=== PATIENT | male | born 1960 | race Caucasian/White ===

== ENCOUNTER → 2018-09-23 10:12 | Outpatient (CLI) | payer OTHER, SELFPAY ==
--- NOTE | 2018-09-23 | DI.RAD.S_ITS ---
PROCEDURE: XR ANKLE LT MIN 3V INDICATIONS: LEFT ANKLE PAIN POST FALL TECHNIQUE: 3 views of the ankle were acquired. COMPARISON: None. FINDINGS: Bones: No fractures or dislocations. Ankle mortise is normally aligned. No suspicious bony lesions. There is a plantar fascia insertion spur, mild to moderate in severity, at the posterior calcaneus. Soft tissues: No tibiotalar joint effusion. Achilles tendon appears normal. IMPRESSION: No trauma found. Plantar fascial insertion spurring, chronic in appearance. No ligamentous laxity is identified. Dictated by: Shahram Sparrow M.D. on 09/23/2018 at 11:08 Approved by: Shahram Sparrow M.D. on 09/23/2018 at 11:09
== END ==
PROVIDERS: Visit Provider Family Medicine
DX: M25.572 Pain in left ankle and joints of left foot (principal); M77.32 Calcaneal spur, left foot
CPT/HCPCS: 73610

== ENCOUNTER → 2020-08-13 14:26 | Outpatient (CLI) | payer OTHER, SELFPAY ==
[2020-08-13 15:21] LABS: COVID19 -Nasal RAPID Negative (Negative)
== END ==
PROVIDERS: Visit Provider Physician Assistant
DX: Z11.59 Encounter for screening for other viral diseases (principal)
CPT/HCPCS: 87635

== ENCOUNTER 2021-09-29 09:30 | Inpatient (IN) | payer OTHER, SELFPAY ==
[2021-09-29] VITALS (13 sets, daily range): BP systolic 106–127; BP diastolic 55–68; PULSE 62–73; RESP 10–31; TEMP 35.7–37.7; O2SAT 92–97; BMI 36.6
--- NOTE | 2021-09-29 09:40 | ED.SOB ---
HPI - SOB/Dyspnea General Chief Complaint: Upper Respiratory Symptoms Stated Complaint: COVID + Time Seen by Provider: 09/29/21 09:44 Source: patient Mode of arrival: EMS Limitations: no limitations History of Present Illness HPI Narrative: This is a 61-year-old male with a known history of hypertension, dyslipidemia and prediabetes. Patient does not have any history of COPD or asthma. States he started having symptoms about 10-12 days ago. He thought it was a sinus infection was started on antibiotics. He started feeling more short of breath and generally worse about or 3 days ago. Did a home test was positive for COVID. His spouse is also positive. Patient is unvaccinated. He denies any fevers at this time. He has had a cough which has been nonproductive. He denies chest pain or pressure but gets very short of breath. Patient notes that he has had felt lightheaded the last day particularly today. He has not had any nausea or vomiting. No other diarrhea constipation. No swelling of his extremities. Patient denies any urinary symptoms. Patient states that he checked a home pulse ox yesterday and had some very low numbers, he repeated it today and was as low as the 70s sinus pulse ox for a longer period of time and finally called EMS for transport. Patient did require oxygen for them to get him above 85%. Denies tobacco, states he was drinking 2-3 shots daily until 12 days ago. Denies any to marijuana or illicit drugs. Dr. Dolan is his primary care. Related Data Home Medications Medication Instructions Recorded Confirmed atorvastatin 40 mg tablet 40 mg PO QA 09/29/21 09/29/21 hydrochlorothiazide 12.5 mg capsule 12.5 mg PO QA 09/29/21 09/29/21 losartan 100 mg tablet 100 mg PO QAM 09/29/21 09/29/21 metformin 500 mg tablet 500 mg PO [facility] 09/29/21 09/29/21 Allergies Allergy/AdvReac Type Severity Reaction Status Date / Time No Known Drug Allergies Allergy Unverified 08/13/20 14:23 Review of Systems Review of Systems ROS Unobtainable: All systems reviewed & are unremarkable except as noted in HPI and below Patient History Medical History Exposure to COVID-19 virus Social History household members: spouse Smoking Status: Never smoker Smoking Status: Never smoker Exam Narrative Exam Narrative: GENERAL: Alert and oriented x three, obese male in mild to moderate distress. Patient arrived on 10 L non-rebreather with EMS but was able to be weaned down to 4 L. HEENT: Head normocephalic, atraumatic, EOMI, pupils reactive, face symmetric, moist mucous membranes NECK: Supple, full range of motion CARDIOVASCULAR: Regular rate and rhythm without murmurs, rubs or gallops. RESPIRATORY: Breath sounds equal bilaterally slightly decreased in the bases,no wheezes rales or rhonchi. No tachypnea or accessory muscle use. ABDOMEN: Soft, nontender. Normoactive bowel sounds all 4 quadrants. No guarding or rebound, rigidity, no mass : No CVA tenderness EXTREMITIES: Normal range of motion, no clubbing or edema. Neurovascularly intact NEUROLOGICAL: Cranial nerves II through XII grossly intact. Moving all extremities SKIN: Warm, dry, no petechiae, no rashes or lesions. Initial Vital Signs Initial Vital Signs: Vital Signs Pulse Rate 70 09/29/21 09:37 Pulse Oximetry 93 09/29/21 09:37 Course Orders Ordered: Acetaminophen (Acetaminophen 325 Mg Tablet) 650 mg PO Q6HR PRN PRN Reason: Fever/Mild Pain (1-3) Hydrocodone Bitart/Acetaminophen (Hydrocodone/Acet 5/325 Tablet) 1 tab PO Q4HR PRN PRN Reason: Pain, Moderate (4-6) Dexamethasone (Dexamethasone 10 Mg/Ml Vial) 6 mg IV DAILY [facility] Enoxaparin Sodium (Enoxaparin 40 Mg/0.4 Ml Syringe) 40 mg SUBCUT DAILY [facility] Sodium Chloride (Normal Saline 0.9%) 1,000 mls @ 125 mls/hr IV CONT [facility] Last Infusion: 09/29/21 12:34 Dose: 0 mls/hr Documented by: Admin: 09/29/21 11:38 Dose: 125 mls/hr Documented by: JD Remdesivir 100 mg/ Sodium (Chloride) 250 mls @ 250 mls/hr IV DAILY [facility] Stop: 10/03/21 09:59 Ibuprofen (Ibuprofen 600 Mg Tablet) 600 mg PO Q6HR PRN PRN Reason: Fever/Mild Pain (1-3) Influenza Virus Vaccine (Influenza Vaccine Qiv 0.5 Ml Syringe) 0.5 ml IM .ONCE ONE Stop: 09/30/21 09:01 Lorazepam (Lorazepam 2 Mg/Ml Inj) 0.5 mg IV Q6HR PRN PRN Reason: Anxiety Magnesium Hydroxide (Magnesium Hydroxide 30 Ml Udc) 30 ml PO DAILY PRN PRN Reason: Constipation Morphine Sulfate (Morphine 2 Mg/Ml Inj) 2 mg IV Q4HR PRN PRN Reason: Pain, Moderate (4-6) Naloxone HCl (Naloxone 0.4 Mg/Ml Vial) 0.2 mg IV Q2MIN PRN PRN Reason: Opiate Reversal Ondansetron HCl (Ondansetron 4 Mg/2 Ml Inj) 4 mg IV Q8HR PRN PRN Reason: Nausea And Vomiting Pantoprazole Sodium (Pantoprazole 40 Mg Vial) 40 mg IV DAILY [facility] Discontinued Medications Dexamethasone (Dexamethasone 10 Mg/Ml Vial) 6 mg IV NOW ONE Stop: 09/29/21 09:46 Last Admin: 09/29/21 09:48 Dose: 6 mg Documented by: ADE Enoxaparin Sodium (Enoxaparin 40 Mg/0.4 Ml Syringe) 40 mg SUBCUT NOW ONE Stop: 09/29/21 11:07 Last Admin: 09/29/21 11:36 Dose: 40 mg Documented by: JD Remdesivir 200 mg/ Sodium (Chloride) 250 mls @ 250 mls/hr IV NOW ONE Stop: 09/29/21 10:44 Last Infusion: 09/29/21 12:34 Dose: 0 mls/hr Documented by: Admin: 09/29/21 11:35 Dose: 250 mls/hr Documented by: JD Reevaluation(s) Reevaluation #1: Patient requiring 4 L nasal cannula. We were able to titrate down from the 10 L that EMS had started him on. He is tolerating this well. Patient was started on dexamethasone and remdesivir. Discussed Dr. Avery is recommendations that he should get a dose of Lovenox. Patient is amenable to all his treatments so far. Discussed his results and findings. All questions answered. Consultations Consultation #1: Dr. Avery, accepts for admission. Asks that we give lovenox 40mg subcutaneous IM. Patient requiring 4L n/c in department. Plan for inpatient admission. Dexamethasone remdesivir were initiated. Vital Signs Vital signs: Vital Signs - 8 hr 09/29/21 09:37 09/29/21 09:40 09/29/21 09:53 Temperature 99.9 F H Pulse Rate 70 71 72 Respiratory Rate 18 Blood Pressure 106/55 L 114/61 Pulse Oximetry 93 95 97 09/29/21 10:00 09/29/21 10:10 09/29/21 10:30 Temperature Pulse Rate 73 70 69 Respiratory Rate 10 L 23 Blood Pressure 121/60 112/63 Pulse Oximetry 93 94 94 09/29/21 11:00 Temperature Pulse Rate 66 Respiratory Rate 20 Blood Pressure 124/61 Pulse Oximetry 96 MDM - SOB/Dyspnea Lab Data Result diagrams: 09/29/21 09:45 09/29/21 09:45 Labs: Lab Results 09/29/21 09/29/21 09/29/21 Range/Units 09:35 09:45 09:45 WBC 4.0 L (4.5-11.0) X10^3/uL RBC 4.60 (4.5-5.9) X10^6/uL Hgb 14.0 (13.5-17.5) g/dL Hct 40.5 L (41-53) % MCV 88.1 (80-100) fL MCH 30.5 (26-34) PG MCHC 34.6 (30-36) % RDW 13.2 (11.6-14.8) % Plt Count 210 (150-400) X10^3/uL Neut % (Auto) 72.6 (50-75) % Lymph % (Auto) 21.4 L (25-40) % [place] % (Auto) 4.6 (3-14) % Eos % (Auto) 0.3 L (2-4) % Baso % (Auto) 1.1 (0-2) % Neut # (Auto) 2900 (1276-2719) /uL Lymph # (Auto) 900 L (0333-3786) /uL [place] # (Auto) 200 (0-900) /uL Eos # (Auto) 0 (0-450) /uL Baso # (Auto) 0 (0-100) /uL D-Dimer 498 H (<230) ng/mL Sodium (137-145) mmol/L Potassium (3.4-5.1) mmol/L Chloride (98-107) mmol/L Carbon Dioxide (22-32) mmol/L BUN (9-20) mg/dL Creatinine (0.66-1.25) mg/dL Estimated GFR (>60) mL/min BUN/Creatinine Ratio (6-22) Glucose (70-100) mg/dL Lactate (0.7-2.1) mmol/L Calcium (8.4-10.2) mg/dL Ferritin (18-464) ng/mL Total Bilirubin (0.2-1.3) mg/dL AST (17-59) IU/L ALT (<50) IU/L Alkaline Phosphatase (38-126) U/L Lactate Dehydrogenase (313-618) U/L Total Creatine Kinase (55-170) U/L CK-MB (CK-2) (<2.37) ng/mL CK-MB (CK-2) Rel Index (1.5-5.0) % Troponin I (0.01-0.034) ng/mL C-Reactive Protein (<1.0) mg/dL NT-Pro-B Natriuret Pep (<125) pg/mL Total Protein (6.3-8.2) g/dL Albumin (3.5-5.0) g/dL Globulin (1.7-4.1) g/dL Albumin/Globulin Ratio (1.0-2.8) Procalcitonin (<0.5) ng/mL SARS-CoV-2 (PCR) Positive H (Negative) 09/29/21 09/29/21 09/29/21 Range/Units 09:45 09:45 09:45 WBC (4.5-11.0) X10^3/uL RBC (4.5-5.9) X10^6/uL Hgb (13.5-17.5) g/dL Hct (41-53) % MCV (80-100) fL MCH (26-34) PG MCHC (30-36) % RDW (11.6-14.8) % Plt Count (150-400) X10^3/uL Neut % (Auto) (50-75) % Lymph % (Auto) (25-40) % [place] % (Auto) (3-14) % Eos % (Auto) (2-4) % Baso % (Auto) (0-2) % Neut # (Auto) (6420-6216) /uL Lymph # (Auto) (9142-8253) /uL [place] # (Auto) (0-900) /uL Eos # (Auto) (0-450) /uL Baso # (Auto) (0-100) /uL D-Dimer (<230) ng/mL Sodium 131 L (137-145) mmol/L Potassium 3.9 (3.4-5.1) mmol/L Chloride 96 L (98-107) mmol/L Carbon Dioxide 27 (22-32) mmol/L BUN 37 H (9-20) mg/dL Creatinine 1.68 H (0.66-1.25) mg/dL Estimated GFR 42.0 L (>60) mL/min BUN/Creatinine Ratio 22.0 (6-22) Glucose 113 H (70-100) mg/dL Lactate 1.1 (0.7-2.1) mmol/L Calcium 8.5 (8.4-10.2) mg/dL Ferritin 2030 H (18-464) ng/mL Total Bilirubin 0.9 (0.2-1.3) mg/dL AST 106 H (17-59) IU/L ALT 59 H (<50) IU/L Alkaline Phosphatase 70 (38-126) U/L Lactate Dehydrogenase 1760 H (313-618) U/L Total Creatine Kinase 915 H (55-170) U/L CK-MB (CK-2) 1.37 (<2.37) ng/mL CK-MB (CK-2) Rel Index 0.1 L (1.5-5.0) % Troponin I < 0.012 (0.01-0.034) ng/mL C-Reactive Protein 5.2 H (<1.0) mg/dL NT-Pro-B Natriuret Pep 84 (<125) pg/mL Total Protein 7.9 (6.3-8.2) g/dL Albumin 4.3 (3.5-5.0) g/dL Globulin 3.6 (1.7-4.1) g/dL Albumin/Globulin Ratio 1.2 (1.0-2.8) Procalcitonin 0.17 (<0.5) ng/mL SARS-CoV-2 (PCR) (Negative) Imaging Data Chest x-ray: Radiologist's Impression: Arturo Zeng??61??M??1960 ? Allergy/Adv: No Known Drug Allergies (More??) Close Chest X-Ray (Signed) Chay Harrison - 09/29/21 Ankle X-Ray (Signed) Shahram Sparrow - 09/23/18 Launch?[address] [address] XRay Report Signed Patient: Arturo Zeng MR#: [id number] : 1960 Acct:[id number] Age/Sex: 61 / M Date of Service: 09/29/21 Loc: ED Accession Number: [id number] ?? Procedure: XR chest 1V Ordering Provider: Lexy Ibanez D.O. PROCEDURE:? XR CHEST 1V ? INDICATIONS:? sob, hypoxia, +covid at home ? TECHNIQUE:? One view of the chest was acquired.? ? COMPARISON:? None. ? FINDINGS:? ? Surgical changes and devices:? None.? ? Lungs and pleura:? There are diffuse predominately ground-glass opacities noted throughout the lungs.? This is most prominent within the central right lung and along the peripheral of the left lung. No pleural effusions or pneumothorax.? ? Mediastinum:? Mediastinal contours appear normal.? Heart size is normal.? ? Bones and chest wall:? No suspicious bony lesions.? Overlying soft tissues appear unremarkable.? ? IMPRESSION:? ? Diffuse ground-glass opacities most consistent with multifocal pneumonia.? Given history, this is most likely due to Covid pneumonia. ? ? Dictated by: Chay Harrison D.O. on 09/29/2021 at 9:07 ? ? Approved by: Chay Harrison D.O. on 09/29/2021 at 9:09?? MDM Narrative Medical decision making narrative: This is a 61-year-old male with multiple comorbidities who test positive for COVID. He is unvaccinated and requiring L oxygen nasal cannula with pneumonia and positive COVID test. Patient's inflammatory markers are concerning. He does have an elevated creatinine today unsure if this is his baseline verses new. Patient was given some gentle hydration after discussion with hospitalist Service. Dexamethasone and remdesivir after discussed with the patient. Lovenox was also initiated his D-dimer is elevated which is not completely unexpected with a COVID infection. This was discussed as well with the hospitalist. Patient was not having increasing oxygen requirements in the department and was admitted inpatient. Discharge Plan Departure Patient Disposition: Admitted As Inpatient Clinical Impression: Acute respiratory failure with hypoxia, Pneumonia due to 2019 novel coronavirus Admit Date/Time: 09/29/21 11:28 Admit Provider: Анна Avery
--- NOTE | 2021-09-29 09:41 | DI.RAD.S_ITS ---
PROCEDURE: XR CHEST 1V INDICATIONS: sob, hypoxia, +covid at home TECHNIQUE: One view of the chest was acquired. COMPARISON: None. FINDINGS: Surgical changes and devices: None. Lungs and pleura: There are diffuse predominately ground-glass opacities noted throughout the lungs. This is most prominent within the central right lung and along the peripheral of the left lung. No pleural effusions or pneumothorax. Mediastinum: Mediastinal contours appear normal. Heart size is normal. Bones and chest wall: No suspicious bony lesions. Overlying soft tissues appear unremarkable. IMPRESSION: Diffuse ground-glass opacities most consistent with multifocal pneumonia. Given history, this is most likely due to Covid pneumonia. Dictated by: Chay Harrison D.O. on 09/29/2021 at 9:07 Approved by: Chay Harrison D.O. on 09/29/2021 at 9:09
[2021-09-29] MEDS: DEXAMETHASONE 10 MG/ML VIAL 6 MG IV (09:48)
[2021-09-29 09:55] LABS: Add Manual Diff / Slide Review NO; Basophils Absolute Auto 0 /uL (0-100); Basophils Percent Auto 1.1 % (0-2); Eosinophils Absolute Auto 0 /uL (0-450); Eosinophils Percent Auto 0.3 % (2-4); Hematocrit 40.5 % (41-53); Lymphocytes Absolute Auto 900 /uL (1100-4500); Lymphocytes Percent Auto 21.4 % (25-40); Mean Corpuscular HGB Conc 34.6 % (30-36); Mean Corpuscular Hemoglobin 30.5 PG (26-34); Mean Corpuscular Volume 88.1 fL (80-100); Monocytes Absolute Auto 200 /uL (0-900); Monocytes Percent Auto 4.6 % (3-14); Neutrophils Absolute Auto 2900 /uL (1500-7000); Neutrophils Percent Auto 72.6 % (50-75); Platelet Count 210 X10^3/uL (150-400); Red Cell Distribution Width 13.2 % (11.6-14.8)
[2021-09-29 10:06] LABS: D Dimer 498 ng/mL (<230)
[2021-09-29 10:08] LABS: Lactate (Lactic Acid) 1.1 mmol/L (0.7-2.1)
[2021-09-29 10:10] LABS: Alanine Aminotransferase 59 IU/L (<50); Albumin 4.3 g/dL (3.5-5.0); Albumin Globulin Ratio 1.2 (1.0-2.8); Alkaline Phosphatase 70 U/L (38-126); Aspartate Aminotransferase 106 IU/L (17-59); Bilirubin Total 0.9 mg/dL (0.2-1.3); Blood Urea Nitrogen 37 mg/dL (9-20); C-Reactive Protein Quant 5.2 mg/dL (<1.0); Calcium 8.5 mg/dL (8.4-10.2); Carbon Dioxide 27 mmol/L (22-32); Chloride 96 mmol/L (98-107); Creatine Kinase 915 U/L (55-170); Globulin 3.6 g/dL (1.7-4.1); Glucose 113 mg/dL (70-100); HEMOLYSIS < 15 (0-50); Potassium 3.9 mmol/L (3.4-5.1); Sodium 131 mmol/L (137-145); Total Protein 7.9 g/dL (6.3-8.2)
[2021-09-29 10:20] LABS: NT-proBNP (BNP-Adult 18+) 84 pg/mL (<125); Troponin I < 0.012 ng/mL (0.01-0.034)
[2021-09-29 10:22] LABS: CKMB % Relative Index 0.1 % (1.5-5.0); Creatine Kinase MB 1.37 ng/mL (<2.37)
[2021-09-29 10:24] LABS: Procalcitonin 0.17 ng/mL (<0.5)
[2021-09-29 10:36] LABS: COVID19 - ADMIT (NP swab/PCR) POSITIVE (Negative)
[2021-09-29 11:26] LABS: Ferritin 2030 ng/mL (18-464)
[2021-09-29] MEDS: REMDESIVIR 200 MG in SODIUM CHLORIDE 0.9% 210 ML 250 ML IV (11:35)
[2021-09-29] MEDS: ENOXAPARIN 40 MG/0.4 ML SYRINGE SUBCUT (11:36)
[2021-09-29] MEDS: SODIUM CHLORIDE 0.9% 1,000 ML 125 ML IV ×2 (11:38→21:35)
[2021-09-29 11:42] LABS: Lactate Dehydrogenase 1760 U/L (313-618)
--- NOTE | 2021-09-29 17:53 | P.HP_ITS ---
History of Present Illness History of Present Illness Date Patient Seen: 09/29/21 Time Patient Seen: 16:50 Date of Onset of Symptoms: 09/21/21 Chief complaint: COVID + Narrative: This 61-year-old male presents to emergency department via EMS due to low oxygen saturation. Patient started getting ill on September 21. Did go the work on the and then felt the symptoms were worsening and on September 25 he called stating that he thought he had a sinus infection and was prescribed azithromycin for empiric treatment for an acute sinusitis. He has a history of sinus infections. His symptoms have progressively worsened and so on Thursday I believe he was tested at home for COVID and was positive. He has been monitoring his oxygen level and it was in the 70 percentile yesterday and that persisted today so we contacted emergency medical service. He is feeling much better since he has been on oxygen. He was found to have a chest x-ray consistent with COVID 19 pneumonia. He was treated with dexamethasone, remdesivir, oxygen and Lovenox in the ER and was admitted to the hospital for further treatment. The patient is unvaccinated. The patient's is ill as well with COVID but was vaccinated. Otherwise patient has been in his usual state health. Past medical history: 1. Hypertension 2. Hyperlipidemia 3. Impaired glucose tolerance for which he is on metformin and his last A1c I believe was in May was 6.1 4. Obesity 5. A history of alcohol disuse syndrome. He has quit using alcohol since 09/14/2021 Current medications: Atorvastatin 40 mg daily Hydrochlorothiazide 12.5 mg daily Losartan 100 mg daily Metformin 500 mg daily No known drug allergies Past surgical history: Unremarkable Health related behavior: Patient no longer uses alcohol but prior to [place] was a daily user. He does not smoke and has never been a smoker. He does not use illicit drugs. Social history: Patient is and lives with his here in and a [place]. 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 Family history: Father had seizure disorder Mother had breast cancer Review of systems: Negative for headache but he has had sinus pressure Patient has had a cough and shortness of breath which has been progressive Patient has had a fever Patient has not had nausea or vomiting or diarrhea. There has been no change in his bowel movements. He has had no urine symptoms. He has not had any rashes. He has not had any chest pain or leg pain Otherwise 12 point review of systems is negative other than above Patient History Medical History Exposure to COVID-19 virus Family & Social History Social History: household members spouse Prior Living Arrangements House Safety & Behavioral: Feels Safe in Current Yes Environment Been Physically Hurt or No Threatened By a Person Suicidal Ideation Description None Suicide Plan Description No Plan Tobacco & Substance use: Smoking Status Never smoker alcohol intake frequency 3 or more drinks per day Substance Use Type does not use Meds Home Medications and Allergies Home Medications Medication Instructions Recorded Confirmed Type atorvastatin 40 mg tablet 40 mg PO QAM 09/29/21 09/29/21 History hydrochlorothiazide 12.5 mg capsule 12.5 mg PO QA 09/29/21 09/29/21 History losartan 100 mg tablet 100 mg PO QAM 09/29/21 09/29/21 History metformin 500 mg tablet 500 mg PO QAM 09/29/21 09/29/21 History Allergies Allergy/AdvReac Type Severity Reaction Status Date / Time No Known Drug Allergies Allergy Unverified 08/13/20 14:23 Exam Vital Signs (past 8 hours): - 09/29/21 10:00 09/29/21 10:10 09/29/21 10:30 Temperature Pulse Rate 73 70 69 Respiratory Rate 10 L 23 Blood Pressure 121/60 112/63 Pulse Oximetry 93 94 94 09/29/21 11:00 09/29/21 11:30 09/29/21 12:00 Temperature Pulse Rate 66 68 66 Respiratory Rate 20 31 H 28 H Blood Pressure 124/61 122/65 120/60 Pulse Oximetry 96 94 94 09/29/21 13:52 Temperature 96.4 F L Pulse Rate 70 Respiratory Rate 14 Blood Pressure 117/64 Pulse Oximetry 92 Oxygen Delivery Method Nasal Cannula,Humidification Oxygen Flow Rate 5 Narrative Exam Narrative: Patient is standing up in hospital room. He is alert and oriented x3 an excellent historian. He shows no increased work of breathing. No tachypnea or tripoding or nasal flaring Head is normocephalic atraumatic Eyes pupils equal round reactive to light Sclera nonicteric Nose unremarkable Oropharynx shows mucous membranes dry Neck: Supple without adenopathy or masses Chest: Shows diffuse crackles and rhonchi with poor air exchange. No egophany. No wheeze Cor: Regular rate and rhythm without murmur, distant S1-S2 Abdomen: Positive bowel sounds, soft, nontender, nondistended, obese Extremities: No edema, pulses intact Neurologic exam nonfocal Skin no rashes Objective Labs Result Diagrams: 09/29/21 09:45 09/29/21 09:45 Labs: Laboratory Results - last 24 hr 09/29/21 09/29/21 09/29/21 09:35 09:45 09:45 WBC 4.0 L RBC 4.60 Hgb 14.0 Hct 40.5 L MCV 88.1 MCH 30.5 MCHC 34.6 RDW 13.2 Plt Count 210 Neut % (Auto) 72.6 Lymph % (Auto) 21.4 L [place] % (Auto) 4.6 Eos % (Auto) 0.3 L Baso % (Auto) 1.1 Neut # (Auto) 2900 Lymph # (Auto) 900 L [place] # (Auto) 200 Eos # (Auto) 0 Baso # (Auto) 0 D-Dimer 498 H Sodium Potassium Chloride Carbon Dioxide BUN Creatinine Estimated GFR BUN/Creatinine Ratio Glucose Lactate Calcium Ferritin Total Bilirubin AST ALT Alkaline Phosphatase Lactate Dehydrogenase Total Creatine Kinase CK-MB (CK-2) CK-MB (CK-2) Rel Index Troponin I C-Reactive Protein NT-Pro-B Natriuret Pep Total Protein Albumin Globulin Albumin/Globulin Ratio Procalcitonin SARS-CoV-2 (PCR) Positive H 09/29/21 09/29/21 09/29/21 09:45 09:45 09:45 WBC RBC Hgb Hct MCV MCH MCHC RDW Plt Count Neut % (Auto) Lymph % (Auto) [place] % (Auto) Eos % (Auto) Baso % (Auto) Neut # (Auto) Lymph # (Auto) [place] # (Auto) Eos # (Auto) Baso # (Auto) D-Dimer Sodium 131 L Potassium 3.9 Chloride 96 L Carbon Dioxide 27 BUN 37 H Creatinine 1.68 H Estimated GFR 42.0 L BUN/Creatinine Ratio 22.0 Glucose 113 H Lactate 1.1 Calcium 8.5 Ferritin 2030 H Total Bilirubin 0.9 AST 106 H ALT 59 H Alkaline Phosphatase 70 Lactate Dehydrogenase 1760 H Total Creatine Kinase 915 H CK-MB (CK-2) 1.37 CK-MB (CK-2) Rel Index 0.1 L Troponin I < 0.012 C-Reactive Protein 5.2 H NT-Pro-B Natriuret Pep 84 Total Protein 7.9 Albumin 4.3 Globulin 3.6 Albumin/Globulin Ratio 1.2 Procalcitonin 0.17 SARS-CoV-2 (PCR) Assessment & Plan Assessment & Plan narrative: 61-year-old male admitted for COVID 19 pneumonia with hypoxemia. Assessment 1. COVID-19 pneumonia with hypoxemia. Currently on 4 L of nasal cannula and stable at that point. Plan: We will treat with REmdemisvir, dexamethasone and Lovenox. He has received all these in the ER today. We discussed these medications and potential complications and patient agree to treatment. He asked about however being treated with ivermectin and I discussed that it had not been shown to improve outcomes at levels that were not toxic. Will continue with supplemental oxygen Will consult RT Assessment 2. Hypertension Plan: Will continue outpatient hydrochlorothiazide and losartan Assessment 3. Impaired glucose tolerance Plan: Will hold metformin for now. His creatinine is elevated. Will check CBG and give low algorithm sliding scale insulin Assessment 4. Acute kidney injury. Suspect etiology is dehydration Plan: Will continue with IV fluids overnight but likely. At that time. Patient is drinking ample fluids. We will hold metformin and losartan hydrochlorothiazide tonight. Will reassess in a.m.. Assessment 5. Hyperlipidemia Plan: Continue atorvastatin. Assessment 6. DVT prophylaxis Plan: Patient will be on Lovenox Assessment 7. GI prophylaxis Plan: Will treat with IV Protonix. Code status is full code 65 minutes was spent with patient discussing with ER physician, nursing and meeting with patient and formulating plan of care Time Spent With Patient Critical Care time: I spent a total of [] minutes of critical care time on this patient's care today; this time is exclusive of procedural time. Quality VTE Deep Vein Thrombosis/Pulmonary Embolism Present on Admission: No
[2021-09-30] VITALS: O2SAT 96
[2021-09-30 06:31] LABS: Add Manual Diff / Slide Review NO; Basophils Absolute Auto 0 /uL (0-100); Basophils Percent Auto 0.3 % (0-2); Eosinophils Absolute Auto 0 /uL (0-450); Eosinophils Percent Auto 0.1 % (2-4); Hematocrit 41.6 % (41-53); Lymphocytes Absolute Auto 700 /uL (1100-4500); Lymphocytes Percent Auto 15.6 % (25-40); Mean Corpuscular HGB Conc 33.6 % (30-36); Mean Corpuscular Hemoglobin 30.4 PG (26-34); Mean Corpuscular Volume 90.5 fL (80-100); Monocytes Absolute Auto 200 /uL (0-900); Monocytes Percent Auto 5.2 % (3-14); Neutrophils Absolute Auto 3400 /uL (1500-7000); Neutrophils Percent Auto 78.8 % (50-75); Platelet Count 224 X10^3/uL (150-400); Red Cell Distribution Width 13.5 % (11.6-14.8); White Blood Cell Count 4.3 X10^3/uL (4.5-11.0)
[2021-09-30 06:36] LABS: D Dimer 386 ng/mL (<230)
[2021-09-30 06:41] LABS: Alanine Aminotransferase 47 IU/L (<50); Albumin 3.7 g/dL (3.5-5.0); Albumin Globulin Ratio 1.1 (1.0-2.8); Alkaline Phosphatase 67 U/L (38-126); Aspartate Aminotransferase 69 IU/L (17-59); BUN Creatinine Ratio 31.1 (6-22); Bilirubin Total 0.6 mg/dL (0.2-1.3); Blood Urea Nitrogen 28 mg/dL (9-20); Calcium 8.5 mg/dL (8.4-10.2); Carbon Dioxide 22 mmol/L (22-32); Chloride 107 mmol/L (98-107); Estimated Glomerular Filt Rate > 60.0 mL/min (>60); Globulin 3.5 g/dL (1.7-4.1); Glucose 144 mg/dL (70-100); HEMOLYSIS < 15 (0-50); Potassium 4.4 mmol/L (3.4-5.1); Sodium 136 mmol/L (137-145); Total Protein 7.2 g/dL (6.3-8.2)
[2021-09-30] MEDS: SODIUM CHLORIDE 0.9% 1,000 ML 125 ML IV (06:43)
[2021-09-30 06:44] LABS: C-Reactive Protein Quant 4.5 mg/dL (<1.0)
[2021-09-30 07:19] VITALS: BP 108/66; PULSE 58; RESP 16; TEMP 35.9; O2SAT 97
[2021-09-30 08:10] LABS: Ferritin 1850 ng/mL (18-464)
[2021-09-30 08:30] VITALS: BP 114/67; PULSE 59; RESP 16; TEMP 35.8; O2SAT 91
[2021-09-30] MEDS: ENOXAPARIN 40 MG/0.4 ML SYRINGE SUBCUT (09:53)
[2021-09-30] MEDS: DEXAMETHASONE 10 MG/ML VIAL 6 MG IV (09:53)
[2021-09-30] MEDS: SODIUM CHLORIDE 0.9% FLUSH 10 ML IV ×2 (09:54→22:41)
[2021-09-30] MEDS: PANTOPRAZOLE 40 MG VIAL IV (09:54)
[2021-09-30] MEDS: REMDESIVIR 100 MG in SODIUM CHLORIDE 0.9% 230 ML 250 ML IV (09:54)
[2021-09-30] MEDS: INFLUENZA VACCINE QIV 0.5 ML SYRINGE IM (09:59)
--- NOTE | 2021-09-30 10:15 | P.PN_ITS ---
Subjective Subjective Date Patient Seen: 09/30/21 Time Patient Seen: 08:55 Interval history: CC: When can I go home? Pt now admitted coming up on 24 hours oxygen demand remaining stable at 4 liters overnight. Appetite and sleep good. Exam Vital Signs (past 8 hours): - 09/30/21 07:19 09/30/21 08:30 Temperature 96.7 F L 96.5 F L Pulse Rate 58 L 59 L Respiratory Rate 16 16 Blood Pressure 108/66 114/67 Pulse Oximetry 97 91 Oxygen Delivery Method Nasal Cannula Oxygen Flow Rate 4.5 Narrative Exam Narrative: cheerful alert renata sitting up in bed finishing breakfast Const General: cooperative, healthy appearing, comfortable and well developed Eyes General: appearance normal, both eyes and all related structures Resp Other: moving air well able to speak in full sentences on 4L via NC, clear to auscultation bilaterally Cardio Other: rate and rhythm wnl no tachycardia S1/S2 heard GI Other: soft nontender normal bowel sounds Neuro General: patient alert, patient awake, patient oriented x3, moves all extremities and CN's II-XI intact bilaterally Extrem General: normal to inspection and full ROM Psych Appearance: grossly normal and well kempt Objective Labs Result Diagrams: 09/30/21 06:00 09/30/21 06:00 Labs: Laboratory Results - last 24 hr 09/29/21 09/29/21 09/29/21 09:35 09:45 09:45 WBC RBC Hgb Hct MCV MCH MCHC RDW Plt Count Neut % (Auto) Lymph % (Auto) Dickey % (Auto) Eos % (Auto) Baso % (Auto) Neut # (Auto) Lymph # (Auto) Dickey # (Auto) Eos # (Auto) Baso # (Auto) D-Dimer Sodium Potassium Chloride Carbon Dioxide BUN Creatinine Estimated GFR BUN/Creatinine Ratio Glucose Calcium Ferritin 2030 H Total Bilirubin AST ALT Alkaline Phosphatase Lactate Dehydrogenase 1760 H CK-MB (CK-2) 1.37 CK-MB (CK-2) Rel Index 0.1 L Troponin I < 0.012 C-Reactive Protein NT-Pro-B Natriuret Pep 84 Total Protein Albumin Globulin Albumin/Globulin Ratio Procalcitonin 0.17 SARS-CoV-2 (PCR) Positive H 09/30/21 09/30/21 09/30/21 06:00 06:00 06:00 WBC 4.3 L RBC 4.60 Hgb 14.0 Hct 41.6 MCV 90.5 MCH 30.4 MCHC 33.6 RDW 13.5 Plt Count 224 Neut % (Auto) 78.8 H Lymph % (Auto) 15.6 L Dickey % (Auto) 5.2 Eos % (Auto) 0.1 L Baso % (Auto) 0.3 Neut # (Auto) 3400 Lymph # (Auto) 700 L Dickey # (Auto) 200 Eos # (Auto) 0 Baso # (Auto) 0 D-Dimer 386 H Sodium 136 L Potassium 4.4 Chloride 107 Carbon Dioxide 22 BUN 28 H Creatinine 0.90 Estimated GFR > 60.0 BUN/Creatinine Ratio 31.1 H Glucose 144 H Calcium 8.5 Ferritin Total Bilirubin 0.6 AST 69 H ALT 47 Alkaline Phosphatase 67 Lactate Dehydrogenase CK-MB (CK-2) CK-MB (CK-2) Rel Index Troponin I C-Reactive Protein NT-Pro-B Natriuret Pep Total Protein 7.2 Albumin 3.7 Globulin 3.5 Albumin/Globulin Ratio 1.1 Procalcitonin SARS-CoV-2 (PCR) 09/30/21 06:00 WBC RBC Hgb Hct MCV MCH MCHC RDW Plt Count Neut % (Auto) Lymph % (Auto) Dickey % (Auto) Eos % (Auto) Baso % (Auto) Neut # (Auto) Lymph # (Auto) Dickey # (Auto) Eos # (Auto) Baso # (Auto) D-Dimer Sodium Potassium Chloride Carbon Dioxide BUN Creatinine Estimated GFR BUN/Creatinine Ratio Glucose Calcium Ferritin 1850 H Total Bilirubin AST ALT Alkaline Phosphatase Lactate Dehydrogenase CK-MB (CK-2) CK-MB (CK-2) Rel Index Troponin I C-Reactive Protein 4.5 H NT-Pro-B Natriuret Pep Total Protein Albumin Globulin Albumin/Globulin Ratio Procalcitonin SARS-CoV-2 (PCR) [facility] Medical History Exposure to COVID-19 virus Social History household members: spouse Smoking Status: Never smoker Assessment & Plan Assessment & Plan narrative: 61-year-old male admitted for COVID 19 pneumonia with hypoxemia. #COVID-19 pneumonia with hypoxemia.? Unvaccinated. Currently on 4 L of nasal cannula and stable. Continue Remdemisvir, dexamethasone and Lovenox.? Will continue with supplemental oxygen consult RT #Hypertension continue outpatient hydrochlorothiazide and losartan #Impaired glucose tolerance low algorithm sliding scale insulin, resume metformin tomorrow #Acute kidney injury.? Suspect etiology is dehydration Improvement noted will look to KVO later today.? Patient is drinking ample fluids.? We will hold metformin and losartan hydrochlorothiazide tonight.? Will reassess in a.m.. #Hyperlipidemia continue home atorvastatin #DVT prophylaxis Lovenox #GI prophylaxis got IV Protonix. code: full DVT: lovenox Covid: positive Time Spent With Patient Critical Care time: I spent a total of [] minutes of critical care time on this patient's care today; this time is exclusive of procedural time. Quality VTE Deep Vein Thrombosis/Pulmonary Embolism Present on Admission: No
--- NOTE | 2021-09-30 12:53 | CM.DANOTE ---
DCP: Case received, EMR reviewed. Did not meet with patient, secondary to his being positive for COVID. Was able to call patient in his room and receive some information. Introduced self and role. DCP assessment completed with information currently available. Patient is a 61 year old male who admitted yesterday morning to the care of the hospitalist team. PCP: Dr. Dolan. Payer: confirmed: [employer]. Patient came to the hospital via ambulance secondary to having increased shortness of breath, and low oxygen levels. Patient was placed on oxygen, as his sats were running in the high 70s, low 80s. He was placed on oxygen, improved. Patient holds diagnosis of COVID Pneumonia. Patient is being treated with dexamethasone, remdemisvir. Patient is unvaccinated, but spouse also has COVID, and is v Called patient's room and had brief conversation. He is alert and oriented. He resides in [place] with his spouse, Sabrina. He is independent, and is employed at [employer]. He indicated, his is upset because Dr. Dolan's office would not give her any medical information. Spoke to nurse, Jeannette, and she left a message with Dr. Dolan's office to see if he could call her. She also informed this to patient's spouse. P: DCP to continue to follow. Plan is for patient to go home when he is deemed medically stable. Sofy Hernandez RN/Laboratory Monitor Discharge Planning/Care Management Advanced directive, confirm from FAMILY Start: 09/29/21 13:52 Freq: Q24H Status: Active Protocol: Document 09/29/21 13:55 AKP (Rec: 09/29/21 13:56 AKP [id number]) Advance Directive, confirm on record Time 13:56 Person contacted patient to ask Copy received No CM Discharge Assessment Start: 09/30/21 12:48 Freq: Status: Active Protocol: Document 09/30/21 12:48 (Rec: 09/30/21 12:53 [id number]) Discharge Planning Assessment Assigned Apartment Coordinator Sofy Hernandez RN/Laboratory Monitor Advance Directives? Yes Advance Directives on File No History Provided By Patient,Medical Record Prior Living Arrangements House Household Members spouse Type of transporation used prior to Drives own vehicle admit Independent with ADL's Yes Is patient alert and oriented? Yes Caregiver for Another No Barriers to Discharge No Discharge Plan Home Transportation Arrangement Family Referrals Initiated None needed Whiteboard Updated in Patient Room with No name and ext. # of Apartment Coordinator Comment Patient is positive for COVID, did not enter room. Review Status In Process Next Review Type Continued Stay Review
[2021-09-30 17:00] VITALS: BP 122/70; PULSE 60; RESP 16; TEMP 36.1; O2SAT 93
--- NOTE | 2021-09-30 18:24 | PC.NURSE ---
Covid precautions. A&Ox4. VSS. 4.5 L O2, 91-96%. Denies pain. Cough but denies SOB. Lung sounds diminished, fine crackles in bilateral bases. Independent in room. Calls appropriately. called today concerned with patients treatment and medications. This technical writer and editor did her best to explain the treatments he is receiving and explain why antibiotics are not necessary for his type of pneumonia. Bed low, call light within reach.
[2021-09-30 20:20] VITALS: BP 129/68; PULSE 59; RESP 18; TEMP 36.2; O2SAT 93
[2021-09-30 20:50] VITALS: O2SAT 95
[2021-10-01] VITALS (9 sets, daily range): BP systolic 118–129; BP diastolic 60–70; PULSE 57–76; RESP 14–24; TEMP 35.8–36.6; O2SAT 87–95
[2021-10-01] MEDS: SODIUM CHLORIDE 0.9% 1,000 ML 42 ML IV (00:08)
[2021-10-01 06:26] LABS: Hematocrit 38.5 % (41-53); Hemoglobin 13.2 g/dL (13.5-17.5); Mean Corpuscular HGB Conc 34.3 % (30-36); Mean Corpuscular Hemoglobin 30.7 PG (26-34); Mean Corpuscular Volume 89.4 fL (80-100); Platelet Count 298 X10^3/uL (150-400); Red Cell Distribution Width 13.4 % (11.6-14.8); White Blood Cell Count 8.3 X10^3/uL (4.5-11.0)
[2021-10-01 06:30] LABS: BUN Creatinine Ratio 24.7 (6-22); Blood Urea Nitrogen 22 mg/dL (9-20); Calcium 8.6 mg/dL (8.4-10.2); Carbon Dioxide 28 mmol/L (22-32); Chloride 109 mmol/L (98-107); Estimated Glomerular Filt Rate > 60.0 mL/min (>60); Glucose 143 mg/dL (70-100); HEMOLYSIS < 15 (0-50); Potassium 4.7 mmol/L (3.4-5.1); Sodium 137 mmol/L (137-145)
--- NOTE | 2021-10-01 08:34 | P.PN_ITS ---
Subjective Subjective Date Patient Seen: 10/01/21 Time Patient Seen: 18:00 Interval history: Patient had unremarkable night. He is still on 4.5 L of nasal cannula oxygen. With any exertion his saturations go down into the 80s and it takes some time for the mood to come back into the 90s. They were able to wean him down to 3.5 L today but his requirements have gone back up to 4.5 L. he feels better he. He feels that his chest does not hurt and previously it did. He is eating normally and drinking normally and normal stool. He was having anxiety and claustrophobia but a fan was helpful for him. Exam Vital Signs (past 8 hours): - 10/01/21 01:25 10/01/21 04:00 Temperature 97.6 F Pulse Rate 57 L Respiratory Rate 18 Blood Pressure 119/70 Pulse Oximetry 94 94 Oxygen Delivery Method Nasal Cannula Oxygen Flow Rate 4.5 Narrative Exam Narrative: AF, VSS HEENT: wnl Neck: supple without lymphadenopathy Chest: decreased breath sounds bilateral, with crackles and rhonchi, no increased work of breathing, no tachypnea or tripoding or intercostal retraction Cor: Regular rate and rhythm with distant S1-S2 Extremity no edema pulses intact Objective Labs Result Diagrams: 10/01/21 05:57 10/01/21 05:57 Labs: Laboratory Results - last 24 hr 10/01/21 10/01/21 05:57 05:57 WBC 8.3 D RBC 4.30 L Hgb 13.2 L Hct 38.5 L MCV 89.4 MCH 30.7 MCHC 34.3 RDW 13.4 Plt Count 298 Sodium 137 Potassium 4.7 Chloride 109 H Carbon Dioxide 28 BUN 22 H Creatinine 0.89 Estimated GFR > 60.0 BUN/Creatinine Ratio 24.7 H Glucose 143 H Calcium 8.6 PFSH Medical History Exposure to COVID-19 virus Social History household members: spouse Smoking Status: Never smoker Assessment & Plan Assessment & Plan narrative: 61-year-old male admitted for COVID pneumonia Assessment 1. COVID-19 pneumonia, stable. Patient has been hospitalized for 36 hours now with continued oxygen requirements that have been stable but not impro ving. His O2 sats are in the low 90s on 4-5 L of nasal cannula oxygen. He is still at a point that his condition could rapidly deteriorate and therefore requires continued hospitalization. The next 24-48 hours should declare whether he will decline or slowly began to improve. Plan: Continue inpatient hospitalization Continue with supplemental oxygen and RT consult Continue with dexamethasone, Levaquin, REMdemisvir Continue off IV fluids Check labs in a.m. Assessment 2. Hypertension with blood pressure well controlled. His blood pressure may be improved because of illness or because he did quit drinking alcohol. Plan: Will go ahead and restart losartan but at half his outpatient dose 50 mg daily. Will continue to hold outpatient hydrochlorothiazide. Will recheck kidney function in a.m. Assessment 3. Impaired glucose tolerance Plan: Continue with CBGS q.a.c. and q.h.s.. Continue to hold metformin. Continue with sliding scale insulin Assessment number for DVT prophylaxis Plan: Continue with Lovenox Assessment 5. Hyperlipidemia Plan: Continue with atorvastatin. Assessment 6.. History of alcohol disuse syndrome. Stable he is out of the range of time for withdrawal symptoms. Assessment 7. Acute kidney disease. Suspect related to dehydration. Improved with IV fluids and now stable. Will go ahead and restart losartan and continue to monitor blood pressure and kidney function. Time Spent With Patient Critical Care time: I spent a total of [] minutes of critical care time on this patient's care today; this time is exclusive of procedural time. Quality VTE Deep Vein Thrombosis/Pulmonary Embolism Present on Admission: No
[2021-10-01] MEDS: PANTOPRAZOLE 40 MG VIAL IV (09:50)
[2021-10-01] MEDS: LOSARTAN 50 MG TABLET PO (09:51)
[2021-10-01] MEDS: REMDESIVIR 100 MG in SODIUM CHLORIDE 0.9% 230 ML 250 ML IV (09:51)
[2021-10-01] MEDS: DEXAMETHASONE 10 MG/ML VIAL 6 MG IV (09:51)
[2021-10-01] MEDS: ENOXAPARIN 40 MG/0.4 ML SYRINGE SUBCUT (09:52)
[2021-10-01] MEDS: SODIUM CHLORIDE 0.9% FLUSH 10 ML IV ×2 (09:53→21:00)
--- NOTE | 2021-10-01 11:10 | CM.DPC ---
DCP Cont: Discussed patient during team rounds with respiratory therapy. Patient is currently on 3 liters of oxygen. Patient is able to ambulate in his room. He resides with his spouse, Sabrina, in [place]. P: DCP to continue to follow. Plan is for patient to go home when he is deemed medically stable. Sofy Hernandez RN/Ultimate Hoops Trainer
--- NOTE | 2021-10-01 15:30 | PC.NURSE ---
Pt received A&Ox3, VSS, afebrile 91-93% on 3 L. Patient with activity 02 saturation dropping to 86% with ambulating to Chair or using BR on 3 LNC. Oxygen increased to 4.5 L this a.m. taking several minutes to reach 91-93% again. Educated patient about IS and encouraged IS use. He was able to obtain 500-600 but stimulated coughing fit and he was unable to do more than a few. He reports he is highly anxious about being in a closed room and asking to be discharged home today. RN offered anxiolytic and confirmed with MD that patient is being advised to stay overnight for close monitoring. He states I don't like taking medications. He reported feeling hot but temp was 97.1, RN placed a fan at bedside and he reported this helped to reduce his anxiety and made him feel more comfortable. This afternoon upon assessment patient found on 4.5 L at 86% he states I was up to 92% but I had to go plug in my phone. Pt denied any pain. Lung sounds with fine crackles, diminished in bases. Per MD request RT notified for home 02 evaluation.
--- NOTE | 2021-10-01 23:41 | PC.NURSE ---
Addendum entered by Janet Okeefe R.N. 10/02/21 02:01: 0030 Dr Avery informed of patient's increased O2 needs and his being transferred to ICU per protocol. Order received for tele-information security consult. Patient transferred to room 231 and report given to Jo Ann, YARN MAN. Original Note: Patient seen and assessed at 2100. He was up to bathroom with oxygen on at 5L/min per NC and when back to bed sat was at 71%. Gradually increased O2 over next 15 minutes but unable to get sat > 87%. Patient placed on NRB at 15L/min and over next 5 minutes increased to 93%. RT notified and saw patient and left him on NRB at 10L/min with sat of 95%. Around 2300 patient called and OPTOMETRIST OWNER reported patient had become claustrophobic and removed his NRB and sat was at 78% so she contacted RT who came up to see patient. RT reports she has been unable to get sat > 88% so feels he will need HHFNC so will be transferring to ICU. Daughter, Nathalia, called and talked with this RN and was updated on patient condition.
[2021-10-02] VITALS (60 sets, daily range): BP systolic 105–151; BP diastolic 58–76; PULSE 44–81; RESP 16–45; TEMP 35.9–37.1; O2SAT 74–100
--- NOTE | 2021-10-02 01:05 | PM.CN.EICU ---
History of Present Illness Consult details Chief complaint: COVID + :: This patient was seen via real time interactive two-way audiovisual telecommunication. Narrative: Patient is a 61 year old male with hisotry of hypertension, hyperlipidemia, and obesity who is unvaccinated for COVID-19 presenting on 09/29 with acute hypoxemia respiratory failure. Patient had a sinus infection on 09/25 which he was treated with a course of empiric antibiotic for acute sinusitis with no improvement. No reported chest pain, cough, fever/chills, or recent sick contact. On presentation he was found to be hypoxemia requiring supplemental oxygen which he was admitted to the floor. He was started on decadron and remdesivir. Hospital course complicated with worsening hypoxemia which he was started on HFNC 60/70% and transferred to ICU for further management. In ICU, he reports no further complaints. [facility] Medical History Exposure to COVID-19 virus Social History household members: spouse Smoking Status: Never smoker Current Medications Current Medications Medications: Home Medications atorvastatin 40 mg tablet 40 mg PO QAM 09/29/21 [History Confirmed 09/29/21] hydrochlorothiazide 12.5 mg capsule 12.5 mg PO QAM 09/29/21 [History Confirmed 09/29/21] losartan 100 mg tablet 100 mg PO QAM 09/29/21 [History Confirmed 09/29/21] metformin 500 mg tablet 500 mg PO QA 09/29/21 [History Confirmed 09/29/21] Visit Medications (administered) Generic Name Dose Route Start Last Admin Trade Name Freq PRN Reason Stop Dose Admin Dexamethasone 6 mg 09/30/21 09:00 10/01/21 09:51 Dexamethasone 10 Mg/Ml Vial IV 6 mg DAILY ZACKARY Administration Enoxaparin Sodium 40 mg 09/30/21 09:00 10/01/21 09:52 Enoxaparin 40 Mg/0.4 Ml Syringe SUBCUT 40 mg DAILY ZACKARY Administration Remdesivir 100 mg/ Sodium 250 mls @ 250 mls/hr 09/30/21 09:00 10/01/21 09:51 Chloride IV 10/03/21 09:59 250 mls/hr DAILY ZACKARY Administration Losartan Potassium 50 mg 10/01/21 09:00 10/01/21 09:51 Losartan 50 Mg Tablet PO 50 mg DAILY ZACKARY Administration Sodium Chloride 10 ml 09/30/21 09:00 10/01/21 21:00 Sodium Chloride 0.9% Flush IV 10 ml BID ZACKARY Administration Exam Vital Signs (past 8 hours): - 10/01/21 20:36 10/01/21 21:00 10/01/21 21:48 Temperature 97.9 F Pulse Rate 76 Respiratory Rate 24 Blood Pressure 129/60 Pulse Oximetry 95 90 L 95 10/01/21 23:30 Temperature Pulse Rate Respiratory Rate Blood Pressure Pulse Oximetry 87 L Oxygen Delivery Method High Flow Nasal Cannula Oxygen Flow Rate 15 Narrative Exam Narrative: Morbidly obese and NAD Objective Labs Result Diagrams: 10/01/21 05:57 10/01/21 05:57 Labs: Laboratory Results - last 24 hr 10/01/21 10/01/21 05:57 05:57 WBC 8.3 D RBC 4.30 L Hgb 13.2 L Hct 38.5 L MCV 89.4 MCH 30.7 MCHC 34.3 RDW 13.4 Plt Count 298 Sodium 137 Potassium 4.7 Chloride 109 H Carbon Dioxide 28 BUN 22 H Creatinine 0.89 Estimated GFR > 60.0 BUN/Creatinine Ratio 24.7 H Glucose 143 H Calcium 8.6 Assessment & Plan Assessment & Plan narrative: NEURO: -- Encourage OOB as tolerated RESP: # Acute hypoxemia respiratory failure -- Worsening hypoxemia secondary to COVID PNA -- Started on HFNC 60/70% w/ SpO2 ~98% -- COVID rx as below -- Start gentle diuresis to seek net negative fluid balance -- Monitor closely for the need for intubation -- Aggressive pulmonary toilet as able -- Encourage self proning -- Goal SpO2 > 88% CVS: # Hx of HTN -- On losartan ID: # COVID PNA -- Trend CRP, LDH, D dimer, and LFTs -- Cont decadron and remdesivir therapy -- Added baricitinib -- Check venous duplex to rule out DVT -- Start gentle diuresis to seek net negative fluid balance -- Avoid NSAIDs -- On strict contact, droplet/airborne protection, and critical meticulous and hygiene -- On lovenox for DVT ppx ENDO: -- Goal BS < 180 Case d/w RN at bedside. Time Spent With Patient Critical Care time: I spent a total of [] minutes of critical care time on this patient's care today; this time is exclusive of procedural time.
--- NOTE | 2021-10-02 01:21 | PC.NURSE ---
Addendum entered by Jo Ann Kapadia R.N. 10/02/21 06:12: 0600: Pt up to bathroom with standby assist. O2 saturations dropped into mid 80s, increased work of breathing noted. pt required approx 10 mins to fully recover saturations in the low 90s. Addendum entered by Jo Ann Kapadia R.N. 10/02/21 01:32: 0130: Pt on heated high flow O2 therapy, 60L/min 70% FiO2 Original Note: 0050: Pt admitted to ICU secondary to increased work of breathing/desaturation with difficult recovery and need for heated high flow O2 therapy. A&Ox3, denies complaints other than shortness of breath with any exertion. Bed in low and locked position, call light within reach. Pt provided education on ICU admission, new medications, and importance of cough/deep breathing exercises and self-proning.
--- NOTE | 2021-10-02 01:23 | DI.US.S_ITS ---
PROCEDURE: US PERIPH VENOUS LOW EXTREM BI INDICATIONS: SWELLING. COVID POSITIVE. TECHNIQUE: Real-time imaging, as well as color and pulse Doppler interrogation, were performed of the deep veins of both legs from the inguinal ligament to the popliteal fossa. COMPARISON: None. FINDINGS: Right: The common femoral, femoral and popliteal veins are normally compressible, and free of intraluminal thrombus. Color and pulse Doppler demonstrate normal phasic intravascular flow. There is normal augmentation response to distal compression maneuver. Left: The common femoral, femoral and popliteal veins are normally compressible, and free of intraluminal thrombus. Color and pulse Doppler demonstrate normal phasic intravascular flow. There is normal augmentation response to distal compression maneuver. IMPRESSION: No sonographic evidence of DVT. Dictated by: Nirmal Faust M.D. on 10/02/2021 at 9:32 Approved by: Nirmal Faust M.D. on 10/02/2021 at 9:33
[2021-10-02 05:04] LABS: Add Manual Diff / Slide Review NO; Basophils Absolute Auto 0 /uL (0-100); Basophils Percent Auto 0.4 % (0-2); Eosinophils Absolute Auto 0 /uL (0-450); Hematocrit 38.7 % (41-53); Hemoglobin 13.2 g/dL (13.5-17.5); Lymphocytes Absolute Auto 700 /uL (1100-4500); Lymphocytes Percent Auto 8.4 % (25-40); Mean Corpuscular Hemoglobin 30.2 PG (26-34); Mean Corpuscular Volume 88.9 fL (80-100); Monocytes Absolute Auto 300 /uL (0-900); Monocytes Percent Auto 3.5 % (3-14); Neutrophils Absolute Auto 7300 /uL (1500-7000); Neutrophils Percent Auto 87.7 % (50-75); Platelet Count 376 X10^3/uL (150-400); Red Blood Cell Count 4.36 X10^6/uL (4.5-5.9); Red Cell Distribution Width 13.6 % (11.6-14.8); White Blood Cell Count 8.3 X10^3/uL (4.5-11.0)
[2021-10-02 05:12] LABS: BUN Creatinine Ratio 25.3 (6-22); Blood Urea Nitrogen 21 mg/dL (9-20); Calcium 8.9 mg/dL (8.4-10.2); Carbon Dioxide 28 mmol/L (22-32); Chloride 109 mmol/L (98-107); Estimated Glomerular Filt Rate > 60.0 mL/min (>60); Glucose 135 mg/dL (70-100); HEMOLYSIS < 15 (0-50); Potassium 5.1 mmol/L (3.4-5.1); Sodium 141 mmol/L (137-145)
[2021-10-02 05:14] LABS: Alanine Aminotransferase 37 IU/L (<50); Albumin 3.3 g/dL (3.5-5.0); Albumin Globulin Ratio 1.1 (1.0-2.8); Alkaline Phosphatase 60 U/L (38-126); Aspartate Aminotransferase 49 IU/L (17-59); Bilirubin Total 0.6 mg/dL (0.2-1.3); Bilirubin Unconjugated 0.6 mg/dL (0.0-1.1); C-Reactive Protein Quant 1.6 mg/dL (<1.0); Globulin 2.9 g/dL (1.7-4.1); HEMOLYSIS < 15 (0-50); Total Protein 6.2 g/dL (6.3-8.2)
[2021-10-02 05:20] LABS: D Dimer 387 ng/mL (<230)
--- NOTE | 2021-10-02 09:04 | PM.PN.1 ---
Subjective Subjective Date Patient Seen: 10/02/21 Time Patient Seen: 08:45 Interval history: CC: am i on monoclonal antibodies now? Pt declined overnight and was admitted to ICU for heated high flow oxygen. He is holding sats ok if he doesn't move at 50L. Appreciate TeleICU input. Winded if he gets up to bathroom. He does NOT desire intubation. Exam Vital Signs (past 8 hours): - 10/02/21 02:07 10/02/21 03:26 10/02/21 04:55 Temperature 98.4 F 97.3 F L Pulse Rate 50 L 56 L Respiratory Rate 17 21 Blood Pressure 139/71 151/76 H Pulse Oximetry 94 100 10/02/21 05:30 10/02/21 05:55 10/02/21 08:05 Temperature 98.4 F Pulse Rate 55 L 62 Respiratory Rate 17 24 Blood Pressure 151/76 H Pulse Oximetry 99 97 Fraction of Inspired Oxygen 83 Oxygen Delivery Method Heated High Flow Oxygen Flow Rate 50 Narrative Exam Narrative: awake laying in bed on phone Const General: cooperative and comfortable HENKY Head: normal to inspection, normocephalic and atraumatic Eyes General: appearance normal, both eyes and all related structures Resp Other: breathing through HFNC system, satting in high 80s just got back in bed Cardio Other: regular rate nontachycardic normal rhythm GI Inspection: normal to inspection Other: soft nontender Neuro General: patient alert, patient awake, patient oriented x3, moves all extremities and CN's II-XI intact bilaterally Extrem General: normal to inspection and full ROM Psych Appearance: grossly normal and well kempt Objective Labs Result Diagrams: 10/02/21 04:37 10/02/21 04:37 Labs: Laboratory Results - last 24 hr 10/02/21 10/02/21 10/02/21 04:37 04:37 04:37 WBC 8.3 RBC 4.36 L Hgb 13.2 L Hct 38.7 L MCV 88.9 MCH 30.2 MCHC 34.0 RDW 13.6 Plt Count 376 Neut % (Auto) 87.7 H Lymph % (Auto) 8.4 L Gulf % (Auto) 3.5 Eos % (Auto) 0.0 L Baso % (Auto) 0.4 Neut # (Auto) 7300 H Lymph # (Auto) 700 L Gulf # (Auto) 300 Eos # (Auto) 0 Baso # (Auto) 0 D-Dimer 387 H Sodium 141 Potassium 5.1 Chloride 109 H Carbon Dioxide 28 BUN 21 H Creatinine 0.83 Estimated GFR > 60.0 BUN/Creatinine Ratio 25.3 H Glucose 135 H Calcium 8.9 Total Bilirubin Conjugated Bilirubin Unconjugated Bilirubin AST ALT Alkaline Phosphatase C-Reactive Protein Total Protein Albumin Globulin Albumin/Globulin Ratio 10/02/21 04:37 WBC RBC Hgb Hct MCV MCH MCHC RDW Plt Count Neut % (Auto) Lymph % (Auto) Gulf % (Auto) Eos % (Auto) Baso % (Auto) Neut # (Auto) Lymph # (Auto) Gulf # (Auto) Eos # (Auto) Baso # (Auto) D-Dimer Sodium Potassium Chloride Carbon Dioxide BUN Creatinine Estimated GFR BUN/Creatinine Ratio Glucose Calcium Total Bilirubin 0.6 Conjugated Bilirubin 0.0 Unconjugated Bilirubin 0.6 AST 49 ALT 37 Alkaline Phosphatase 60 C-Reactive Protein 1.6 H Total Protein 6.2 L Albumin 3.3 L Globulin 2.9 Albumin/Globulin Ratio 1.1 [facility] Medical History Exposure to COVID-19 virus Social History household members: spouse Smoking Status: Never smoker Assessment & Plan Assessment & Plan narrative: #COVID-19 pneumonia #acute respiratory failure with hypoxia Acute worsening overnight with increase in oxygen requirements. Holding steady at 99 if he prones on heated high flow. continue to encourage proning. declining remdesivir continue to offer with bacitrinib and dexamethasone and lovenox follow labs encourage incentive spirometry use appreciate tele train electronic technician input #Hypertension with blood pressure well controlled.? His blood pressure may be improved because of illness or because he did quit drinking alcohol. continue losartan at half his outpatient dose 50 mg daily.? Will continue to hold outpatient hydrochlorothiazide.? kidney function holding on well did get lasix today #Impaired glucose tolerance Continue with CBGS q.a.c. and q.h.s..? Continue to hold metformin.? Continue with sliding scale insulin #Hyperlipidemia Continue with atorvastatin.? #History of alcohol abuse syndrome.? Stable he is out of the range of time for withdrawal symptoms. #Acute kidney disease.? Suspect related to dehydration, improved s/p IVF, continue to monitor blood pressure and kidney function DVT PPX: lovenox MDM: Extensive conversation with patient and on phone today total time spent on patient today 45 minutes Time Spent With Patient Critical Care time: I spent a total of [] minutes of critical care time on this patient's care today; this time is exclusive of procedural time. Quality VTE Deep Vein Thrombosis/Pulmonary Embolism Present on Admission: No
[2021-10-02] MEDS: ENOXAPARIN 40 MG/0.4 ML SYRINGE SUBCUT (10:06)
[2021-10-02] MEDS: BARICITINIB 2 MG TABLET 4 MG PO (10:06)
[2021-10-02] MEDS: LOSARTAN 50 MG TABLET PO (10:06)
[2021-10-02] MEDS: SODIUM CHLORIDE 0.9% FLUSH 10 ML IV ×2 (10:07→21:22)
[2021-10-02] MEDS: DEXAMETHASONE 10 MG/ML VIAL 6 MG IV (10:07)
[2021-10-02] MEDS: FUROSEMIDE 20 MG/2 ML VIAL IV (10:07)
--- NOTE | 2021-10-02 11:51 | PM.ICURNDS ---
- Date Patient Seen: 10/02/21 Time Patient Seen: 11:50 :: This patient was seen via real time interactive two-way audiovisual telecommunication. Note: Admitted earlier today with COVID-19 induced acute hypoxic respiratory failure. Has been started on remdesivir, dexamethasone, baricitinib. Currently saturating 97% on HFNC 50 L/min 80%; RR in low to mid 20s. Continue present plan; discussed with RN.
--- NOTE | 2021-10-02 15:43 | CM.DPC ---
DCP Cont: Per MD, pt decompensated yesterday afternoon/evening and had increased oxygen needs and was transitioned to ICU for HHFNC 60L and able to maintain on 50L without movement but desats quickly with any exertion. Pt not medically stable to d/c at this time and in discussion with MD today pt does NOT want intubation if needed. Plan: SW to follow closely for medically progress and hopeful reduction in his oxygen needs and possible HH or home oxygen at d/c. CHRISTIE Schroeder
--- NOTE | 2021-10-02 18:31 | PC.NURSE ---
Day Shift Note Pt on heated HFNC 50L and 80% FiO2. Briefly down to 70% and 75% this shift. SpO2 upper 90s when pt side lying, down to 90-92% when sitting up in bed or on his back. Desaturates to the 80s with activity. Pt up to bathroom SBA/independent. Denies shortness of breath with activity. SB in the 50s. Encouraged to cough and deep breathe, use IS, and to prone. Pt reports difficulty proning but that he will do what he can. Witnessed to be side lying or laying on back while sitting up throughout shift. Call light within reach, using appropriately to make needs known. updated via phone x2 per pt request.
--- NOTE | 2021-10-02 20:06 | PM.ICURNDS ---
- :: This patient was seen via real time interactive two-way audiovisual telecommunication. Note: ICU multidisciplinary round completed. Currently on HFNC 50/80%. Patient is able to prone and ambulate. Cough is minimal. Will continue lasix and COVID rx. Will continue titrating down FiO2 to maintain goal SPO2 > 90%. D/w RN at bedside.
[2021-10-03] VITALS (23 sets, daily range): BP systolic 93–141; BP diastolic 43–70; PULSE 40–66; RESP 14–26; TEMP 35.9–36.6; O2SAT 82–100
[2021-10-03] MEDS: PANTOPRAZOLE DR 40 MG TABLET PO (05:21)
[2021-10-03 05:46] LABS: Hematocrit 39.6 % (41-53); Hemoglobin 13.5 g/dL (13.5-17.5); Mean Corpuscular Hemoglobin 30.5 PG (26-34); Mean Corpuscular Volume 89.6 fL (80-100); Platelet Count 469 X10^3/uL (150-400); Red Blood Cell Count 4.42 X10^6/uL (4.5-5.9); Red Cell Distribution Width 13.4 % (11.6-14.8); White Blood Cell Count 8.5 X10^3/uL (4.5-11.0)
[2021-10-03 05:54] LABS: Alanine Aminotransferase 47 IU/L (<50); Albumin 3.5 g/dL (3.5-5.0); Albumin Globulin Ratio 1.1 (1.0-2.8); Alkaline Phosphatase 67 U/L (38-126); Aspartate Aminotransferase 60 IU/L (17-59); BUN Creatinine Ratio 26.5 (6-22); Bilirubin Total 0.8 mg/dL (0.2-1.3); Bilirubin Unconjugated 0.8 mg/dL (0.0-1.1); Blood Urea Nitrogen 22 mg/dL (9-20); Carbon Dioxide 30 mmol/L (22-32); Chloride 107 mmol/L (98-107); Estimated Glomerular Filt Rate > 60.0 mL/min (>60); Globulin 3.1 g/dL (1.7-4.1); Glucose 131 mg/dL (70-100); HEMOLYSIS < 15 (0-50); Potassium 4.3 mmol/L (3.4-5.1); Sodium 141 mmol/L (137-145); Total Protein 6.6 g/dL (6.3-8.2)
--- NOTE | 2021-10-03 06:14 | PC.NURSE ---
Shift Note-Patient is on HHFNC 50L/80%, while lying on sides or semi-proning, SpO2 >90%, up to 99% at times, he desats to 70-80% during activity, takes 15-20 minutes to recover, insists on ambulating into BR to void, encouraged to stand at side of bed to use urinal instead. SB 40s-50s, RR 20s, coarse crackles throughout, dry non-productive cough.
[2021-10-03] MEDS: BARICITINIB 2 MG TABLET 4 MG PO (08:50)
[2021-10-03] MEDS: FUROSEMIDE 20 MG/2 ML VIAL IV (08:50)
[2021-10-03] MEDS: DEXAMETHASONE 10 MG/ML VIAL 6 MG IV (08:50)
[2021-10-03] MEDS: ENOXAPARIN 40 MG/0.4 ML SYRINGE SUBCUT (08:53)
[2021-10-03] MEDS: SODIUM CHLORIDE 0.9% FLUSH 10 ML IV ×2 (08:55→20:10)
--- NOTE | 2021-10-03 08:58 | PM.PN.1 ---
Subjective Subjective Date Patient Seen: 10/03/21 Time Patient Seen: 08:59 Interval history: CC: I'm tired Exam Vital Signs (past 8 hours): - 10/03/21 02:55 10/03/21 04:46 10/03/21 05:01 Temperature 97.2 F L Pulse Rate 43 L 51 L 50 L Respiratory Rate 20 24 23 Blood Pressure 93/43 L 127/64 Pulse Oximetry 95 93 96 10/03/21 06:18 10/03/21 07:57 10/03/21 08:00 Temperature 92.7 F L Pulse Rate 55 L 50 L 46 L Respiratory Rate 20 24 14 Blood Pressure 127/64 127/64 110/55 L Pulse Oximetry 96 92 95 10/03/21 08:50 Temperature Pulse Rate Respiratory Rate Blood Pressure 127/64 Pulse Oximetry Fraction of Inspired Oxygen 83 Oxygen Delivery Method Heated High Flow Oxygen Flow Rate 50 Narrative Exam Narrative: tired looking renata laying in bed Const General: cooperative HENMT Head: normal to inspection, normocephalic and atraumatic Eyes General: appearance normal, both eyes and all related structures Resp Other: breathing hard but ok if on side or proned. clear to auscultation bilaterally Cardio Other: regular rate adn rhythm not tachycardic GI Other: soft nontender nondistended Neuro General: patient alert, patient awake, patient oriented x3, moves all extremities and CN's II-XI intact bilaterally Extrem General: full ROM and muscle atrophy Psych Appearance: grossly normal Objective Labs Result Diagrams: 10/03/21 05:11 10/03/21 05:11 Labs: Laboratory Results - last 24 hr 10/03/21 10/03/21 05:11 05:11 WBC 8.5 RBC 4.42 L Hgb 13.5 Hct 39.6 L MCV 89.6 MCH 30.5 MCHC 34.0 RDW 13.4 Plt Count 469 H Sodium 141 Potassium 4.3 Chloride 107 Carbon Dioxide 30 BUN 22 H Creatinine 0.83 Estimated GFR > 60.0 BUN/Creatinine Ratio 26.5 H Glucose 131 H Calcium 9.0 Total Bilirubin 0.8 Conjugated Bilirubin 0.0 Unconjugated Bilirubin 0.8 AST 60 H ALT 47 Alkaline Phosphatase 67 Total Protein 6.6 Albumin 3.5 Globulin 3.1 Albumin/Globulin Ratio 1.1 [facility] Medical History Exposure to COVID-19 virus Social History household members: spouse Smoking Status: Never smoker Assessment & Plan Assessment & Plan narrative: #COVID-19 pneumonia #acute respiratory failure with hypoxia Holding steady at 99 if he prones on heated high flow. continue to encourage proning. declining remdesivir continue to offer with bacitrinib and dexamethasone and lovenox follow labs encourage incentive spirometry use appreciate tele home health travel ot input He is DNI for hypoxia #Hypertension with blood pressure well controlled.? His blood pressure may be improved because of illness or because he did quit drinking alcohol. continue losartan at half his outpatient dose 50 mg daily.? Will continue to hold outpatient hydrochlorothiazide.? kidney function holding on cotninue lasix per teleICU #Impaired glucose tolerance Continue with CBGS q.a.c. and q.h.s..? Continue to hold metformin.? Continue with sliding scale insulin #Hyperlipidemia Continue with atorvastatin.? #History of alcohol abuse syndrome.? Stable he is out of the range of time for withdrawal symptoms. #Acute kidney disease.? Suspect related to dehydration, improved s/p IVF, continue to monitor blood pressure and kidney function DVT PPX: lovenox MDM: Time spent with this patient including bedside and documentation 40 minutes Time Spent With Patient Critical Care time: I spent a total of [] minutes of critical care time on this patient's care today; this time is exclusive of procedural time. Quality VTE Deep Vein Thrombosis/Pulmonary Embolism Present on Admission: No
--- NOTE | 2021-10-03 09:12 | DI.RAD.S_ITS ---
PROCEDURE: XR CHEST 1V INDICATIONS: new desat TECHNIQUE: One view of the chest was acquired. COMPARISON: [facility], CR, XR CHEST 1V, 09/29/2021, 9:45. FINDINGS: Surgical changes and devices: None. Lungs and pleura: Low lung volumes are seen, with bilateral interstitial type infiltrates. The infiltrates are more prominent on the current study than on the prior. On this semiupright portable chest examination, no large pneumothorax or large pleural effusions are seen. Mediastinum: Mediastinal contours appear normal. Heart size is normal. Bones and chest wall: No suspicious bony lesions. Age-appropriate bony degenerative changes are seen. Overlying soft tissues appear unremarkable. IMPRESSION: Worsening bilateral interstitial infiltrates are seen. There is strong imaging concern for worsening COVID. Dictated by: Tyree Rowan M.D. on 10/03/2021 at 9:16 Approved by: Tyree Rowan M.D. on 10/03/2021 at 9:17
--- NOTE | 2021-10-03 09:57 | P.TELICUPN_ITS ---
Subjective Subjective :: This patient was seen via real time interactive two-way audiovisual telecommunication. patient more hypoxemic today. his o2 sat was 84% when I viewed him, and his Pao2 is 56 on max high flow. is tolerating PO, and stated he is DNI Current Medications Current Medications Medications: Home Medications atorvastatin 40 mg tablet 40 mg PO QAM 09/29/21 [History Confirmed 09/29/21] hydrochlorothiazide 12.5 mg capsule 12.5 mg PO QAM 09/29/21 [History Confirmed 09/29/21] losartan 100 mg tablet 100 mg PO QAM 09/29/21 [History Confirmed 09/29/21] metformin 500 mg tablet 500 mg PO QAM 09/29/21 [History Confirmed 09/29/21] Visit Medications (administered) Generic Name Dose Route Start Last Admin Trade Name Freq PRN Reason Stop Dose Admin Dexamethasone 6 mg 09/30/21 09:00 10/03/21 08:50 Dexamethasone 10 Mg/Ml Vial IV 6 mg DAILY ZACKARY Administration Enoxaparin Sodium 40 mg 09/30/21 09:00 10/03/21 08:53 Enoxaparin 40 Mg/0.4 Ml Syringe SUBCUT 40 mg DAILY ZACKARY Administration Furosemide 20 mg 10/02/21 09:00 10/03/21 08:50 Furosemide 20 Mg/2 Ml Vial IV 20 mg DAILY ZACKARY Administration Losartan Potassium 50 mg 10/01/21 09:00 10/03/21 09:19 Losartan 50 Mg Tablet PO Not Given DAILY ZACKARY Pantoprazole Sodium 40 mg 10/02/21 06:00 10/03/21 05:[address] 40 Mg Tablet PO 40 mg 0600 ZACKARY Administration Sodium Chloride 10 ml 09/30/21 09:00 10/03/21 08:55 Sodium Chloride 0.9% Flush IV 10 ml BID ZACKARY Administration Objective Ventilator Parameters: Ventilator Settings FiO2 0.80 Labs Result Diagrams: 10/03/21 05:11 10/03/21 05:11 Labs: Laboratory Results - last 24 hr 10/03/21 10/03/21 05:11 05:11 WBC 8.5 RBC 4.42 L Hgb 13.5 Hct 39.6 L MCV 89.6 MCH 30.5 MCHC 34.0 RDW 13.4 Plt Count 469 H Sodium 141 Potassium 4.3 Chloride 107 Carbon Dioxide 30 BUN 22 H Creatinine 0.83 Estimated GFR > 60.0 BUN/Creatinine Ratio 26.5 H Glucose 131 H Calcium 9.0 Total Bilirubin 0.8 Conjugated Bilirubin 0.0 Unconjugated Bilirubin 0.8 AST 60 H ALT 47 Alkaline Phosphatase 67 Total Protein 6.6 Albumin 3.5 Globulin 3.1 Albumin/Globulin Ratio 1.1 Exam Vital Signs (past 8 hours): - 10/03/21 02:55 10/03/21 04:46 10/03/21 05:01 Temperature 97.2 F L Pulse Rate 43 L 51 L 50 L Respiratory Rate 20 24 23 Blood Pressure 93/43 L 127/64 Pulse Oximetry 95 93 96 10/03/21 06:18 10/03/21 07:57 10/03/21 08:00 Temperature 92.7 F L Pulse Rate 55 L 50 L 46 L Respiratory Rate 20 24 14 Blood Pressure 127/64 127/64 110/55 L Pulse Oximetry 96 92 95 10/03/21 09:15 10/03/21 09:19 Temperature Pulse Rate 66 Respiratory Rate 26 H Blood Pressure 110/55 L Pulse Oximetry 82 L Fraction of Inspired Oxygen 83 Oxygen Delivery Method Heated High Flow Oxygen Flow Rate 50 Narrative Exam Narrative: surrogate for exam is primary team Quality TeleICU VTE Deep Vein Thrombosis/Pulmonary Embolism Present on Admission: No Assessment & Plan Assessment & Plan narrative: Acute hypoxemic resp failure COVID 19 ARDS possible prob gram neg pna htn plan will start cpap transition back to high flow as toelrated trend abg BP control, but map > 65 ADAT, may need ensure shakes etc as needed to maintian caloric intake > 500 arcelia/ day trend bmp trend cbc monitor UO goal negative baklance, cont lasix dvt ppx will start empric abx encourage prone positioning continue steroids/remdesivr/barcitinib high risk for decompensation CCT 42 min Time Spent With Patient Critical Care time: I spent a total of [] minutes of critical care time on this patient's care to day; this time is exclusive of procedural time.
[2021-10-03] MEDS: cefTRIAXone 1,000 MG in SODIUM CHLORIDE 0.9% 100 ML 200 ML IV (10:36)
[2021-10-03 10:38] LABS: HCO3 ABG 27 mmol/L (22-26); PCO2 ABG 37.5 mmHg (35-45); PO2 ABG 56 mmHg (80-100); pH ABG 7.47 (7.35-7.45)
[2021-10-03 10:39] LABS: Fractionated Inspired Oxygen 100; Oxygen Saturation ABG 91 % (95-100); TCO2 ABG 29 mmol/L (21-31)
[2021-10-03] MEDS: AZITHROMYCIN 500 MG in DEXTROSE 5% IN WATER 250 ML IV (10:41)
[2021-10-03] MEDS: LOSARTAN 50 MG TABLET PO (13:17)
--- NOTE | 2021-10-03 19:08 | PC.NURSE ---
Patient required increase in O2 today, is now at 60L, 85% FiO2. When side lying spO2 >97%, when supine 87-95%. RT slowly titrating FiO2 down. Patient started on ppx abx today. Patient now compliant using urinal after desatting this AM when using bathroom. CPAP at bedside, Dr. Mathur aware. Appetite has been fair, no BM today. No complaints of pain.
--- NOTE | 2021-10-03 22:54 | P.ICUMDRN_ITS ---
- Date Patient Seen: 10/03/21 Time Patient Seen: 22:53 :: This patient was seen via real time interactive two-way audiovisual telecommunication. Note: The patient is currently self-proned on 85% 60 L/min HFNC. Oxygen desaturation episodes with physical actiivity about the same. Being diuresed with Lasix; - 525 mL thus far. Continue present management; discussed with RN.
[2021-10-03] MEDS: LORazepam 2 MG/ML INJ 0.5 MG IV (23:08)
[2021-10-04] VITALS (18 sets, daily range): BP systolic 101–150; BP diastolic 56–80; PULSE 40–71; RESP 16–28; TEMP 36.3–36.5; O2SAT 91–100
[2021-10-04 04:26] LABS: Hematocrit 41.6 % (41-53); Hemoglobin 14.1 g/dL (13.5-17.5); Mean Corpuscular Hemoglobin 30.3 PG (26-34); Mean Corpuscular Volume 89.2 fL (80-100); Platelet Count 499 X10^3/uL (150-400); Red Blood Cell Count 4.67 X10^6/uL (4.5-5.9); Red Cell Distribution Width 13.2 % (11.6-14.8); White Blood Cell Count 8.4 X10^3/uL (4.5-11.0)
[2021-10-04 04:30] LABS: BUN Creatinine Ratio 28.6 (6-22); Blood Urea Nitrogen 22 mg/dL (9-20); Calcium 8.9 mg/dL (8.4-10.2); Carbon Dioxide 30 mmol/L (22-32); Chloride 105 mmol/L (98-107); Estimated Glomerular Filt Rate > 60.0 mL/min (>60); Glucose 143 mg/dL (70-100); HEMOLYSIS < 15 (0-50); Potassium 4.4 mmol/L (3.4-5.1); Sodium 138 mmol/L (137-145)
[2021-10-04 05:14] LABS: Alanine Aminotransferase 49 IU/L (<50); Albumin 3.3 g/dL (3.5-5.0); Albumin Globulin Ratio 1.1 (1.0-2.8); Alkaline Phosphatase 63 U/L (38-126); Aspartate Aminotransferase 54 IU/L (17-59); Bilirubin Total 0.8 mg/dL (0.2-1.3); Bilirubin Unconjugated 0.8 mg/dL (0.0-1.1); Globulin 2.9 g/dL (1.7-4.1); HEMOLYSIS 23 (0-50); Total Protein 6.2 g/dL (6.3-8.2)
[2021-10-04] MEDS: PANTOPRAZOLE DR 40 MG TABLET PO (06:23)
--- NOTE | 2021-10-04 06:49 | PC.NURSE ---
Shift Note-Patient continues on HHFNC at 60L/75% overnight, SpO2 has been in the high 90s, does not desat <90% during activity in bed, using urinal at bedside. Ativan given per his request, wanting a sleep aid, states it helped a little
--- NOTE | 2021-10-04 09:07 | PM.PN.1 ---
Subjective Subjective Date Patient Seen: 10/04/21 Time Patient Seen: 08:40 Interval history: CC: I can leave tomorrow? PT had uneventful night proning and side sleeping able to keep sats above 90. FiO2 down to 75% on HFNC. Today is day 6. Continue to encourage proning and drinking as able Exam Vital Signs (past 8 hours): - 10/04/21 02:00 10/04/21 03:00 10/04/21 04:00 Temperature Pulse Rate 40 L 43 L 48 L Respiratory Rate 16 16 16 Blood Pressure Pulse Oximetry 100 100 10/04/21 06:00 10/04/21 06:20 10/04/21 08:05 Temperature 97.3 F L Pulse Rate 52 L 56 L 53 L Respiratory Rate 16 22 22 Blood Pressure 117/66 150/80 H Pulse Oximetry 100 92 98 Fraction of Inspired Oxygen 75 Oxygen Delivery Method Heated High Flow Oxygen Flow Rate 60 Narrative Exam Narrative: laying on side in bed with eyes closed but awake Const General: cooperative, comfortable and ill appearing [facility] Head: normal to inspection Eyes General: appearance normal, both eyes and all related structures Resp Other: easy breathing via heated high flow nasal cannula clear to auscultation bilaterally Cardio Other: regular rate and rhythm no tachycardia GI Other: soft nontender normal bowel sounds Neuro Other: poor tone. CN 2-12 grossly intact. moving all extremities Extrem General: full ROM and muscle atrophy Psych Other: looks tired Objective Labs Result Diagrams: 10/04/21 04:05 10/04/21 04:05 Labs: Laboratory Results - last 24 hr 10/03/21 10/04/21 10/04/21 09:40 04:05 04:05 WBC 8.4 RBC 4.67 Hgb 14.1 Hct 41.6 MCV 89.2 MCH 30.3 MCHC 34.0 RDW 13.2 Plt Count 499 H ABG pH 7.47 H ABG pCO2 37.5 ABG pO2 56 L ABG HCO3 27 H ABG Total CO2 29 ABG O2 Saturation 91 L ABG Base Excess 4.0 H FiO2 100 Sodium 138 Potassium 4.4 Chloride 105 Carbon Dioxide 30 BUN 22 H Creatinine 0.77 Estimated GFR > 60.0 BUN/Creatinine Ratio 28.6 H Glucose 143 H Calcium 8.9 Total Bilirubin Conjugated Bilirubin Unconjugated Bilirubin AST ALT Alkaline Phosphatase Total Protein Albumin Globulin Albumin/Globulin Ratio 10/04/21 04:05 WBC RBC Hgb Hct MCV MCH MCHC RDW Plt Count ABG pH ABG pCO2 ABG pO2 ABG HCO3 ABG Total CO2 ABG O2 Saturation ABG Base Excess FiO2 Sodium Potassium Chloride Carbon Dioxide BUN Creatinine Estimated GFR BUN/Creatinine Ratio Glucose Calcium Total Bilirubin 0.8 Conjugated Bilirubin 0.0 Unconjugated Bilirubin 0.8 AST 54 ALT 49 Alkaline Phosphatase 63 Total Protein 6.2 L Albumin 3.3 L Globulin 2.9 Albumin/Globulin Ratio 1.1 [facility] Medical History Exposure to COVID-19 virus Social History household members: spouse Smoking Status: Never smoker Assessment & Plan Assessment & Plan narrative: #COVID-19 pneumonia #acute respiratory failure with hypoxia Holding on heated high flow. continue to encourage proning. 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 His blood pressure may be improved because of illness or because he did quit drinking alcohol. continue losartan at half his outpatient dose 50 mg daily.? Will continue to hold outpatient hydrochlorothiazide.? kidney function holding on continue lasix per teleICU #Impaired glucose tolerance Continue with CBGS q.a.c. and q.h.s..? Continue to hold metformin. he's not eating much.? Continue with sliding scale insulin #Hyperlipidemia Continue home atorvastatin.? #History of alcohol abuse syndrome.? Stable he is out of the range of time for withdrawal symptoms. #Acute kidney disease.? Suspect related to dehydration, improved s/p IVF, continue to monitor blood pressure and kidney function DVT PPX: lovenox MDM: Time spent with this patient including bedside and documentation 40 minutes Time Spent With Patient Critical Care time: I spent a total of [] minutes of critical care time on this patient's care today; this time is exclusive of procedural time. Quality VTE Deep Vein Thrombosis/Pulmonary Embolism Present on Admission: No
--- NOTE | 2021-10-04 09:52 | PM.PN.EICU ---
Subjective Subjective :: This patient was seen via real time interactive two-way audiovisual telecommunication. patient remains on HFNC, fio2 down to 75% this AM, but destaurates when he sits up. Diuresing well and is tolerting PO. seems overall to do better when in lateral decubitus position. Current Medications Current Medications Medications: Home Medications atorvastatin 40 mg tablet 40 mg PO QAM 09/29/21 [History Confirmed 09/29/21] hydrochlorothiazide 12.5 mg capsule 12.5 mg PO QAM 09/29/21 [History Confirmed 09/29/21] losartan 100 mg tablet 100 mg PO QAM 09/29/21 [History Confirmed 09/29/21] metformin 500 mg tablet 500 mg PO QAM 09/29/21 [History Confirmed 09/29/21] Visit Medications (administered) Generic Name Dose Route Start Last Admin Trade Name Freq PRN Reason Stop Dose Admin Dexamethasone 6 mg 09/30/21 09:00 10/03/21 08:50 Dexamethasone 10 Mg/Ml Vial IV 6 mg DAILY ZACKARY Administration Enoxaparin Sodium 40 mg 09/30/21 09:00 10/03/21 08:53 Enoxaparin 40 Mg/0.4 Ml Syringe SUBCUT 40 mg DAILY ZACKARY Administration Furosemide 20 mg 10/02/21 09:00 10/03/21 08:50 Furosemide 20 Mg/2 Ml Vial IV 20 mg DAILY ZACKARY Administration Ceftriaxone Sodium 1,000 mg/ 100 mls @ 200 mls/hr 10/03/21 10:15 10/03/21 12:58 Sodium Chloride IV Infused Q24H ZACKARY Infusion Azithromycin 500 mg/ Dextrose 250 mls @ 250 mls/hr 10/03/21 10:15 10/03/21 12:58 IV Infused Q24H ZACKARY Infusion Lorazepam 0.5 mg 09/29/21 17:51 10/03/21 23:08 Lorazepam 2 Mg/Ml Inj IV 0.5 mg Q6HR PRN Administration Anxiety Losartan Potassium 50 mg 10/01/21 09:00 10/03/21 13:17 Losartan 50 Mg Tablet PO 50 mg DAILY ZACKARY Administration Pantoprazole Sodium 40 mg 10/02/21 06:00 10/04/21 06:[address] 40 Mg Tablet PO 40 mg 0600 ZACKARY Administration Sodium Chloride 10 ml 09/30/21 09:00 10/03/21 20:10 Sodium Chloride 0.9% Flush IV 10 ml BID ZACKARY Administration Objective Ventilator Parameters: Ventilator Settings FiO2 0.80 Labs Result Diagrams: 10/04/21 04:05 10/04/21 04:05 Labs: Laboratory Results - last 24 hr 10/03/21 10/04/21 10/04/21 09:40 04:05 04:05 WBC 8.4 RBC 4.67 Hgb 14.1 Hct 41.6 MCV 89.2 MCH 30.3 MCHC 34.0 RDW 13.2 Plt Count 499 H ABG pH 7.47 H ABG pCO2 37.5 ABG pO2 56 L ABG HCO3 27 H ABG Total CO2 29 ABG O2 Saturation 91 L ABG Base Excess 4.0 H FiO2 100 Sodium 138 Potassium 4.4 Chloride 105 Carbon Dioxide 30 BUN 22 H Creatinine 0.77 Estimated GFR > 60.0 BUN/Creatinine Ratio 28.6 H Glucose 143 H Calcium 8.9 Total Bilirubin Conjugated Bilirubin Unconjugated Bilirubin AST ALT Alkaline Phosphatase Total Protein Albumin Globulin Albumin/Globulin Ratio 10/04/21 04:05 WBC RBC Hgb Hct MCV MCH MCHC RDW Plt Count ABG pH ABG pCO2 ABG pO2 ABG HCO3 ABG Total CO2 ABG O2 Saturation ABG Base Excess FiO2 Sodium Potassium Chloride Carbon Dioxide BUN Creatinine Estimated GFR BUN/Creatinine Ratio Glucose Calcium Total Bilirubin 0.8 Conjugated Bilirubin 0.0 Unconjugated Bilirubin 0.8 AST 54 ALT 49 Alkaline Phosphatase 63 Total Protein 6.2 L Albumin 3.3 L Globulin 2.9 Albumin/Globulin Ratio 1.1 Exam Vital Signs (past 8 hours): - 10/04/21 02:00 10/04/21 03:00 10/04/21 04:00 Temperature Pulse Rate 40 L 43 L 48 L Respiratory Rate 16 16 16 Blood Pressure Pulse Oximetry 100 100 10/04/21 06:00 10/04/21 06:20 10/04/21 08:05 Temperature 97.3 F L Pulse Rate 52 L 56 L 53 L Respiratory Rate 16 22 22 Blood Pressure 117/66 150/80 H Pulse Oximetry 100 92 98 Fraction of Inspired Oxygen 75 Oxygen Delivery Method Heated High Flow Oxygen Flow Rate 60 Narrative Exam Narrative: surrogate for exam is primary team Quality TeleICU VTE Deep Vein Thrombosis/Pulmonary Embolism Present on Admission: No Assessment & Plan Assessment & Plan narrative: Assessment & Plan narrative: Acute hypoxemic resp failure COVID 19 ARDS possible prob gram neg pna htn plan continnue hfnc with prone positioing and lateral decub as toelrated start CPAP if he beings to desaturate trend abg BP control, but map > 65 ADAT, may need ensure shakes etc as needed to maintian caloric intake > 500 arcelia/ day trend bmp trend cbc monitor UO goal negative balance, cont lasix dvt ppx continue ceftriaxone and azithromycin continue steroids/remdesivr/barcitinib high risk for decompensation CCT 42 min Time Spent With Patient Critical Care time: I spent a total of [] minutes of critical care time on this patient's care today; this time is exclusive of procedural time.
[2021-10-04] MEDS: DEXAMETHASONE 10 MG/ML VIAL 6 MG IV (10:08)
[2021-10-04] MEDS: FUROSEMIDE 20 MG/2 ML VIAL IV (10:08)
[2021-10-04] MEDS: cefTRIAXone 1,000 MG in SODIUM CHLORIDE 0.9% 100 ML 200 ML IV (10:09)
[2021-10-04] MEDS: AZITHROMYCIN 500 MG in DEXTROSE 5% IN WATER 250 ML IV (10:11)
[2021-10-04] MEDS: BARICITINIB 2 MG TABLET 4 MG PO (10:12)
[2021-10-04] MEDS: LOSARTAN 50 MG TABLET PO (10:13)
[2021-10-04] MEDS: SODIUM CHLORIDE 0.9% FLUSH 10 ML IV ×2 (10:14→22:31)
[2021-10-04] MEDS: ENOXAPARIN 40 MG/0.4 ML SYRINGE SUBCUT (10:14)
--- NOTE | 2021-10-04 19:16 | PC.NURSE ---
Patient on HHF 60L, 65%. Patient side-lying except for meals. Able to sit up to chair for dinner with minimal desaturation during transfer, while in chair patient spO2 >95%. Over 950ml UO. No complaints of pain.
--- NOTE | 2021-10-04 21:37 | PM.ICURNDS ---
- Date Patient Seen: 10/04/21 Time Patient Seen: 21:35 :: This patient was seen via real time interactive two-way audiovisual telecommunication. Note: Patient is resting in bed comfortably and is down to HFNC 65%; flow remainns at 60 L/min. Glycemic control remains OK on the dexamethasone. Continue present management; discussed with RN dede RT.
[2021-10-04] MEDS: LORazepam 2 MG/ML INJ 0.5 MG IV (22:31)
[2021-10-04] MEDS: ATORVASTATIN 20 MG TABLET 40 MG PO (22:31)
[2021-10-05] VITALS (12 sets, daily range): BP systolic 119–151; BP diastolic 64–90; PULSE 43–67; RESP 15–26; TEMP 36.3–36.5; O2SAT 90–96
[2021-10-05 05:03] LABS: Hematocrit 40.7 % (41-53); Hemoglobin 13.9 g/dL (13.5-17.5); Mean Corpuscular HGB Conc 34.2 % (30-36); Mean Corpuscular Hemoglobin 30.5 PG (26-34); Mean Corpuscular Volume 88.9 fL (80-100); Platelet Count 541 X10^3/uL (150-400); Red Blood Cell Count 4.57 X10^6/uL (4.5-5.9); Red Cell Distribution Width 13.2 % (11.6-14.8); White Blood Cell Count 7.8 X10^3/uL (4.5-11.0)
[2021-10-05 05:11] LABS: BUN Creatinine Ratio 33.8 (6-22); Blood Urea Nitrogen 27 mg/dL (9-20); Calcium 9.1 mg/dL (8.4-10.2); Carbon Dioxide 31 mmol/L (22-32); Chloride 102 mmol/L (98-107); Estimated Glomerular Filt Rate > 60.0 mL/min (>60); Glucose 142 mg/dL (70-100); HEMOLYSIS < 15 (0-50); Potassium 4.4 mmol/L (3.4-5.1); Sodium 136 mmol/L (137-145)
[2021-10-05] MEDS: PANTOPRAZOLE DR 40 MG TABLET PO (06:08)
[2021-10-05] MEDS: AZITHROMYCIN 500 MG in DEXTROSE 5% IN WATER 250 ML IV (08:56)
[2021-10-05] MEDS: ENOXAPARIN 40 MG/0.4 ML SYRINGE SUBCUT (08:59)
[2021-10-05] MEDS: DEXAMETHASONE 10 MG/ML VIAL 6 MG IV (08:59)
[2021-10-05] MEDS: LOSARTAN 50 MG TABLET PO (09:00)
[2021-10-05] MEDS: BARICITINIB 2 MG TABLET 4 MG PO (09:00)
[2021-10-05] MEDS: FUROSEMIDE 20 MG/2 ML VIAL IV (09:04)
[2021-10-05] MEDS: SODIUM CHLORIDE 0.9% FLUSH 10 ML IV ×2 (09:05→20:45)
--- NOTE | 2021-10-05 09:33 | PM.PN.EICU ---
Subjective Subjective :: This patient was seen via real time interactive two-way audiovisual telecommunication. No acute issues overnight. Remains on HFNC 60/65%. Able to lay side to side. Diuresed and net negative 1.4 liters. Current Medications Current Medications Medications: Home Medications atorvastatin 40 mg tablet 40 mg PO QAM 09/29/21 [History Confirmed 09/29/21] hydrochlorothiazide 12.5 mg capsule 12.5 mg PO QAM 09/29/21 [History Confirmed 09/29/21] losartan 100 mg tablet 100 mg PO QAM 09/29/21 [History Confirmed 09/29/21] metformin 500 mg tablet 500 mg PO QA 09/29/21 [History Confirmed 09/29/21] Visit Medications (administered) Generic Name Dose Route Start Last Admin Trade Name Freq PRN Reason Stop Dose Admin Atorvastatin Calcium 40 mg 10/04/21 21:00 10/04/21 22:31 Atorvastatin 20 Mg Tablet PO 40 mg BEDTIME ZACKARY Administration Dexamethasone 6 mg 09/30/21 09:00 10/05/21 08:59 Dexamethasone 10 Mg/Ml Vial IV 6 mg DAILY ZACKARY Administration Enoxaparin Sodium 40 mg 09/30/21 09:00 10/05/21 08:59 Enoxaparin 40 Mg/0.4 Ml Syringe SUBCUT 40 mg DAILY ZACKARY Administration Furosemide 20 mg 10/02/21 09:00 10/05/21 09:04 Furosemide 20 Mg/2 Ml Vial IV 20 mg DAILY ZACKARY Administration Ceftriaxone Sodium 1,000 mg/ 100 mls @ 200 mls/hr 10/03/21 10:15 10/04/21 19:25 Sodium Chloride IV Infused Q24H ZACKARY Infusion Azithromycin 500 mg/ Dextrose 250 mls @ 250 mls/hr 10/03/21 10:15 10/05/21 08:56 IV 250 mls/hr Q24H ZACKARY Administration Lorazepam 0.5 mg 09/29/21 17:51 10/04/21 22:31 Lorazepam 2 Mg/Ml Inj IV 0.5 mg Q6HR PRN Administration Anxiety Losartan Potassium 50 mg 10/01/21 09:00 10/05/21 09:00 Losartan 50 Mg Tablet PO 50 mg DAILY ZACKARY Administration Pantoprazole Sodium 40 mg 10/02/21 06:00 10/05/21 06:[address] 40 Mg Tablet PO 40 mg 0600 ZACKARY Administration Sodium Chloride 10 ml 09/30/21 09:00 10/05/21 09:05 Sodium Chloride 0.9% Flush IV 10 ml BID ZACKARY Administration Objective Ventilator Parameters: Ventilator Settings FiO2 0.80 Labs Result Diagrams: 10/05/21 04:20 10/05/21 04:20 Labs: Laboratory Results - last 24 hr 10/05/21 10/05/21 04:20 04:20 WBC 7.8 RBC 4.57 Hgb 13.9 Hct 40.7 L MCV 88.9 MCH 30.5 MCHC 34.2 RDW 13.2 Plt Count 541 H Sodium 136 L Potassium 4.4 Chloride 102 Carbon Dioxide 31 BUN 27 H Creatinine 0.80 Estimated GFR > 60.0 BUN/Creatinine Ratio 33.8 H Glucose 142 H Calcium 9.1 Exam Vital Signs (past 8 hours): - 10/05/21 04:00 10/05/21 08:24 Temperature 97.5 F L Pulse Rate 56 L 46 L Respiratory Rate 15 26 H Blood Pressure 151/71 H Pulse Oximetry 96 93 Fraction of Inspired Oxygen 0.67 Oxygen Delivery Method Heated High Flow Oxygen Flow Rate 60 Quality TeleICU VTE Deep Vein Thrombosis/Pulmonary Embolism Present on Admission: No Assessment & Plan Assessment & Plan narrative: RESP: # Acute hypoxemia respiratory failure -- Secondary to COVID PNA -- On HFNC 60/65% w/ SpO2 ~93% -- COVID rx as below -- Cont gentle diuresis to seek net negative fluid balance -- Encourage self proning -- Goal SpO2 > 88% CVS: # Hx of HTN -- On losartan -- GOal SBP < 140 ID: # COVID PNA -- Cont decadron and baricitinib -- Cont gentle diuresis to seek net negative fluid balance -- Avoid NSAIDs -- On strict contact, droplet/airborne protection, and critical meticulous and hygiene ENDO: -- Goal BS < 180 Case d/w RN at bedside. Time Spent With Patient Critical Care time: I spent a total of [] minutes of critical care time on this patient's care today; this time is exclusive of procedural time.
--- NOTE | 2021-10-05 10:24 | P.PN_ITS ---
Subjective Subjective Date Patient Seen: 10/05/21 Time Patient Seen: 09:40 Interval history: CC: I feel ok if I don't move Pt feeling about the same, uneventful night, desats if he sits up, still holding at 65% FiO2, appetite good cleaned plate, urine dark Exam Vital Signs (past 8 hours): - 10/05/21 04:00 10/05/21 08:24 10/05/21 09:54 Temperature 97.5 F L Pulse Rate 56 L 46 L 67 Respiratory Rate 15 26 H 24 Blood Pressure 151/71 H 124/72 Pulse Oximetry 96 93 96 Fraction of Inspired Oxygen 0.67 Oxygen Delivery Method Heated High Flow Oxygen Flow Rate 60 Narrative Exam Narrative: tired looking renata laying on side in bed HENMT Head: normal to inspection and normocephalic Eyes General: appearance normal, both eyes and all related structures Neck Neck: normal visual inspection and full ROM Resp Other: clear to auscultation bilaterally. nasal high flow cannula Cardio Other: regular rhythm a bit more tachy today up to 100s S1/S2 GI Other: soft nontender Psych Appearance: grossly normal Mental Status: mental status grossly normal Objective Labs Result Diagrams: 10/05/21 04:20 10/05/21 04:20 Labs: Laboratory Results - last 24 hr 10/05/21 10/05/21 04:20 04:20 WBC 7.8 RBC 4.57 Hgb 13.9 Hct 40.7 L MCV 88.9 MCH 30.5 MCHC 34.2 RDW 13.2 Plt Count 541 H Sodium 136 L Potassium 4.4 Chloride 102 Carbon Dioxide 31 BUN 27 H Creatinine 0.80 Estimated GFR > 60.0 BUN/Creatinine Ratio 33.8 H Glucose 142 H Calcium 9.1 PFSH Medical History Exposure to COVID-19 virus Social History household members: spouse Smoking Status: Never smoker Assessment & Plan Assessment & Plan narrative: #COVID-19 pneumonia #acute respiratory failure with hypoxia Holding on heated high flow. continue to encourage proning. declined remdesivir, getting bacitrinib and dexamethasone and lovenox encourage incentive spirometry use appreciate tele cold storage superintendent input He is DNI for hypoxia #suspected bacterial superinfection on iv abx c/o tele intensivists #Hypertension with blood pressure well controlled.? His blood pressure may be improved because of illness or because he did quit drinking alcohol. continue losartan at half his outpatient dose 50 mg daily.? Will continue to hold outpatient hydrochlorothiazide.? kidney function holding on continue lasix per teleICU encourage enteral hydration. #Impaired glucose tolerance Continue with CBGS q.a.c. and q.h.s.? Continue with sliding scale insulin #Hyperlipidemia Continue home atorvastatin.? #History of alcohol abuse syndrome.? Stable well out of the range of time for any withdrawal symptoms. #Acute kidney disease.? improved s/p IVF, continue to monitor blood pressure and kidney function DVT PPX: lovenox MDM: Time Spent With Patient Critical Care time: I spent a total of [] minutes of critical care time on this patient's care today; this time is exclusive of procedural time. Quality VTE Deep Vein Thrombosis/Pulmonary Embolism Present on Admission: No
[2021-10-05] MEDS: cefTRIAXone 1,000 MG in SODIUM CHLORIDE 0.9% 100 ML 200 ML IV (10:34)
[2021-10-05] MEDS: ATORVASTATIN 20 MG TABLET 40 MG PO (20:35)
[2021-10-05] MEDS: LORazepam 2 MG/ML INJ 0.5 MG IV (20:35)
--- NOTE | 2021-10-05 23:51 | PM.ICURNDS ---
- Date Patient Seen: 10/04/21 Time Patient Seen: 23:52 :: This patient was seen via real time interactive two-way audiovisual telecommunication. Note: HFNC remains at 60L 65% FiO2. Sleeping comfortably. Sinus bradycardia in 40s noted; probably due to sleep. Continue present management for his COVID-19; remains on baricitinb and Decadron; he has finished remdesivir.
[2021-10-06] VITALS (18 sets, daily range): BP systolic 98–145; BP diastolic 56–72; PULSE 42–90; RESP 14–24; TEMP 36.1–36.8; O2SAT 90–96
[2021-10-06] MEDS: PANTOPRAZOLE DR 40 MG TABLET PO (04:50)
[2021-10-06 05:13] LABS: Hematocrit 41.3 % (41-53); Hemoglobin 14.2 g/dL (13.5-17.5); Mean Corpuscular HGB Conc 34.4 % (30-36); Mean Corpuscular Hemoglobin 30.6 PG (26-34); Mean Corpuscular Volume 88.9 fL (80-100); Platelet Count 578 X10^3/uL (150-400); Red Blood Cell Count 4.65 X10^6/uL (4.5-5.9); White Blood Cell Count 9.7 X10^3/uL (4.5-11.0)
[2021-10-06 06:59] LABS: BUN Creatinine Ratio 32.6 (6-22); Blood Urea Nitrogen 28 mg/dL (9-20); Calcium 9.1 mg/dL (8.4-10.2); Carbon Dioxide 31 mmol/L (22-32); Chloride 103 mmol/L (98-107); Estimated Glomerular Filt Rate > 60.0 mL/min (>60); Glucose 124 mg/dL (70-100); HEMOLYSIS < 15 (0-50); Potassium 4.6 mmol/L (3.4-5.1); Sodium 136 mmol/L (137-145)
--- NOTE | 2021-10-06 09:45 | P.TELICUPN_ITS ---
Subjective Subjective :: This patient was seen via real time interactive two-way audiovisual telecommunication. NO acute issues. On HFNC 50/60% with SpO2 in the mid 90s. Negative ~440 mL over the last 24 hours. Current Medications Current Medications Medications: Home Medications atorvastatin 40 mg tablet 40 mg PO QAM 09/29/21 [History Confirmed 09/29/21] hydrochlorothiazide 12.5 mg capsule 12.5 mg PO QAM 09/29/21 [History Confirmed 09/29/21] losartan 100 mg tablet 100 mg PO QAM 09/29/21 [History Confirmed 09/29/21] metformin 500 mg tablet 500 mg PO QAM 09/29/21 [History Confirmed 09/29/21] Visit Medications (administered) Generic Name Dose Route Start Last Admin Trade Name Freq PRN Reason Stop Dose Admin Atorvastatin Calcium 40 mg 10/04/21 21:00 10/05/21 20:35 Atorvastatin 20 Mg Tablet PO 40 mg BEDTIME ZACKARY Administration Dexamethasone 6 mg 09/30/21 09:00 10/05/21 08:59 Dexamethasone 10 Mg/Ml Vial IV 6 mg DAILY ZACKARY Administration Enoxaparin Sodium 40 mg 09/30/21 09:00 10/05/21 08:59 Enoxaparin 40 Mg/0.4 Ml Syringe SUBCUT 40 mg DAILY ZACKARY Administration Furosemide 20 mg 10/02/21 09:00 10/05/21 09:04 Furosemide 20 Mg/2 Ml Vial IV 20 mg DAILY ZACKARY Administration Ceftriaxone Sodium 1,000 mg/ 100 mls @ 200 mls/hr 10/03/21 10:15 10/05/21 11:29 Sodium Chloride IV Infused Q24H ZACKARY Infusion Lorazepam 0.5 mg 09/29/21 17:51 10/05/21 20:35 Lorazepam 2 Mg/Ml Inj IV 0.5 mg Q6HR PRN Administration Anxiety Losartan Potassium 50 mg 10/01/21 09:00 10/05/21 09:00 Losartan 50 Mg Tablet PO 50 mg DAILY ZACKARY Administration Pantoprazole Sodium 40 mg 10/02/21 06:00 10/06/21 04:[address] 40 Mg Tablet PO 40 mg 0600 ZACKARY Administration Sodium Chloride 10 ml 09/30/21 09:00 10/05/21 20:45 Sodium Chloride 0.9% Flush IV 10 ml BID ZACKARY Administration Objective Ventilator Parameters: Ventilator Settings FiO2 0.80 Labs Result Diagrams: 10/06/21 05:00 10/06/21 06:35 Labs: Laboratory Results - last 24 hr 10/06/21 10/06/21 05:00 06:35 WBC 9.7 RBC 4.65 Hgb 14.2 Hct 41.3 MCV 88.9 MCH 30.6 MCHC 34.4 RDW 13.0 Plt Count 578 H Sodium 136 L Potassium 4.6 Chloride 103 Carbon Dioxide 31 BUN 28 H Creatinine 0.86 Estimated GFR > 60.0 BUN/Creatinine Ratio 32.6 H Glucose 124 H Calcium 9.1 Exam Vital Signs (past 8 hours): - 10/06/21 01:55 10/06/21 04:00 10/06/21 04:05 Temperature 97.0 F L Pulse Rate 51 L 67 54 L Respiratory Rate 18 23 20 Blood Pressure 145/72 H 128/72 Pulse Oximetry 93 90 L 92 10/06/21 05:50 10/06/21 07:24 Temperature Pulse Rate 42 L 50 L Respiratory Rate 16 24 Blood Pressure 128/72 128/72 Pulse Oximetry 96 90 L Fraction of Inspired Oxygen 60 Oxygen Delivery Method Heated High Flow Oxygen Flow Rate 50 Quality TeleICU VTE Deep Vein Thrombosis/Pulmonary Embolism Present on Admission: No Assessment & Plan Assessment & Plan narrative: RESP: # Acute hypoxemia respiratory failure -- Secondary to COVID PNA -- Improved -- On HFNC 50/55% w/ SpO2 ~93% -- COVID rx as below -- Cont gentle diuresis to seek net negative fluid balance -- Encourage self proning -- Goal SpO2 > 88% CVS: # Hx of HTN -- On losartan -- Goal SBP < 140 ID: # COVID PNA -- Cont decadron and baricitinib -- Cont gentle diuresis to seek net negative fluid balance -- Avoid NSAIDs -- On strict contact, droplet/airborne protection, and critical meticulous and hygiene ENDO: -- Goal BS < 180 D/w RN and RT. Time Spent With Patient Critical Care time: I spent a total of [] minutes of critical care time on this patient's care toda y; this time is exclusive of procedural time.
--- NOTE | 2021-10-06 09:47 | P.PN_ITS ---
Subjective Subjective Date Patient Seen: 10/06/21 Time Patient Seen: 09:48 Interval history: CC: I feel ok, doc 62% FiO2 this morning. Day 8. Ate entire breakfast. Attemptin to mobilize for a shower today with high flow cannula. Exam Vital Signs (past 8 hours): - 10/06/21 01:55 10/06/21 04:00 10/06/21 04:05 Temperature 97.0 F L Pulse Rate 51 L 67 54 L Respiratory Rate 18 23 20 Blood Pressure 145/72 H 128/72 Pulse Oximetry 93 90 L 92 10/06/21 05:50 10/06/21 07:24 Temperature Pulse Rate 42 L 50 L Respiratory Rate 16 24 Blood Pressure 128/72 128/72 Pulse Oximetry 96 90 L Fraction of Inspired Oxygen 60 Oxygen Delivery Method Heated High Flow Oxygen Flow Rate 50 Narrative Exam Narrative: tired renata laying in bed could use a shower Const General: cooperative and ill appearing Eyes General: appearance normal, both eyes and all related structures Neck Neck: normal visual inspection and full ROM Resp Other: able to speak in complete sentences at rest with HHF O2 at 62% FiO2 at 50L. CTAB/EWOB Cardio Other: normal rate normal rhythm no tachycardia at rest good pulses GI Other: soft nontender nondistended Neuro Other: AAOx3, CN2-12 gorssly intact, moving all extremities Psych Other: mood is good but tired Objective Labs Result Diagrams: 10/06/21 05:00 10/06/21 06:35 Labs: Laboratory Results - last 24 hr 10/06/21 10/06/21 05:00 06:35 WBC 9.7 RBC 4.65 Hgb 14.2 Hct 41.3 MCV 88.9 MCH 30.6 MCHC 34.4 RDW 13.0 Plt Count 578 H Sodium 136 L Potassium 4.6 Chloride 103 Carbon Dioxide 31 BUN 28 H Creatinine 0.86 Estimated GFR > 60.0 BUN/Creatinine Ratio 32.6 H Glucose 124 H Calcium 9.1 PFSH Medical History Exposure to COVID-19 virus Social History household members: spouse Smoking Status: Never smoker Assessment & Plan Assessment & Plan narrative: #COVID-19 pneumonia #acute respiratory failure with hypoxia Holding on heated high flow. continue to encourage proning. Not much progress but not much worsening either getting bacitrinib and dexamethasone and lovenox diuresing with lasix encourage incentive spirometry use appreciate tele risk control field representative input He is DNI for hypoxia #suspected bacterial superinfection on iv abx c/o tele intensivists #Hypertension with blood pressure well controlled.? His blood pressure may be improved because of illness or because he did quit drinking alcohol. continue losartan at half his outpatient dose 50 mg daily.? Will continue to hold outpatient hydrochlorothiazide.? kidney function holding on continue lasix per teleICU encourage enteral hydration. #Impaired glucose tolerance Continue with CBGS q.a.c. and q.h.s.?? Continue with sliding scale insulin #Hyperlipidemia Continue home atorvastatin.? #History of alcohol abuse syndrome.? Stable well out of the range of time for any withdrawal symptoms. #Acute kidney disease.? improved s/p IVF, continue to monitor blood pressure and kidney function DVT PPX: lovenox MDM: Time Spent With Patient Critical Care time: I spent a total of [] minutes of critical care time on this patient's care today; this time is exclusive of procedural time. Quality VTE Deep Vein Thrombosis/Pulmonary Embolism Present on Admission: No
[2021-10-06] MEDS: cefTRIAXone 1,000 MG in SODIUM CHLORIDE 0.9% 100 ML 200 ML IV (09:55)
[2021-10-06] MEDS: FUROSEMIDE 20 MG/2 ML VIAL IV (09:56)
[2021-10-06] MEDS: LOSARTAN 50 MG TABLET PO (09:56)
[2021-10-06] MEDS: BARICITINIB 2 MG TABLET 4 MG PO (09:56)
[2021-10-06] MEDS: AZITHROMYCIN 250 MG TABLET 500 MG PO (09:56)
[2021-10-06] MEDS: DEXAMETHASONE 10 MG/ML VIAL 6 MG IV (09:56)
[2021-10-06] MEDS: ENOXAPARIN 40 MG/0.4 ML SYRINGE SUBCUT (09:56)
[2021-10-06] MEDS: SODIUM CHLORIDE 0.9% FLUSH 10 ML IV ×2 (09:57→21:48)
--- NOTE | 2021-10-06 13:36 | CM.DPC ---
DCP Cont: Discussed patient during team rounds. He is not medically ready for discharge, he continues on high flow oxygen. Dr. Dolan came to see patient today. P: DCP to continue to follow. Plan is still home when medically stable. It is uncertain at this time if patient will need home oxygen. Sofy Hernandez RN/Freezer Person
--- NOTE | 2021-10-06 18:50 | PC.NURSE ---
Day Shift Note Patient on heated HFNC 50L and 55%. Went between side lying and laying on back throughout shift. SpO2 92-95%. Up to bathroom to shower on 15L HFNC. SpO2 upon returning to bed 82-84%, placed back on heated HFNC at previous settings, recovered within 5 min. Reported feeling much better after shower but endorsed fatigue. Telemetry off per MD order. Call light within reach, using appropriately to make needs known.
[2021-10-06] MEDS: ATORVASTATIN 20 MG TABLET 40 MG PO (21:46)
[2021-10-06] MEDS: LORazepam 2 MG/ML INJ 0.5 MG IV (21:48)
[2021-10-07] VITALS (13 sets, daily range): BP systolic 90–141; BP diastolic 50–90; PULSE 43–93; RESP 16–20; TEMP 36.2–36.6; O2SAT 44–97
[2021-10-07 05:08] LABS: Hematocrit 40.6 % (41-53); Mean Corpuscular HGB Conc 34.5 % (30-36); Mean Corpuscular Hemoglobin 30.5 PG (26-34); Mean Corpuscular Volume 88.2 fL (80-100); Platelet Count 542 X10^3/uL (150-400)
[2021-10-07 05:13] LABS: BUN Creatinine Ratio 38.8 (6-22); Blood Urea Nitrogen 33 mg/dL (9-20); Carbon Dioxide 28 mmol/L (22-32); Chloride 103 mmol/L (98-107); Estimated Glomerular Filt Rate > 60.0 mL/min (>60); Glucose 130 mg/dL (70-100); HEMOLYSIS < 15 (0-50); Potassium 4.7 mmol/L (3.4-5.1); Sodium 135 mmol/L (137-145)
[2021-10-07] MEDS: PANTOPRAZOLE DR 40 MG TABLET PO (05:26)
[2021-10-07] MEDS: LOSARTAN 50 MG TABLET PO (08:44)
[2021-10-07] MEDS: AZITHROMYCIN 250 MG TABLET 500 MG PO (08:44)
[2021-10-07] MEDS: ENOXAPARIN 40 MG/0.4 ML SYRINGE SUBCUT (08:44)
[2021-10-07] MEDS: BARICITINIB 2 MG TABLET 4 MG PO (08:44)
[2021-10-07] MEDS: cefTRIAXone 1,000 MG in SODIUM CHLORIDE 0.9% 100 ML 200 ML IV (08:44)
[2021-10-07] MEDS: SODIUM CHLORIDE 0.9% FLUSH 10 ML IV ×2 (08:45→22:11)
[2021-10-07] MEDS: DEXAMETHASONE 10 MG/ML VIAL 6 MG IV (08:45)
[2021-10-07] MEDS: FUROSEMIDE 20 MG/2 ML VIAL IV (08:46)
--- NOTE | 2021-10-07 09:18 | PM.PN.1 ---
Subjective Subjective Date Patient Seen: 10/07/21 Time Patient Seen: 08:45 Interval history: CC: When can I go home? Doing well appetite still good, FiO2 down to 44% at 35 L this morning work on mobilizing maybe think about transition to regular NC Exam Vital Signs (past 8 hours): - 10/07/21 01:20 10/07/21 03:32 10/07/21 04:00 Temperature 97.2 F L Pulse Rate 46 L 50 L 45 L Respiratory Rate 18 20 17 Blood Pressure 141/63 H 117/54 L 117/54 L Pulse Oximetry 95 95 95 10/07/21 05:20 10/07/21 08:24 Temperature Pulse Rate 43 L 49 L Respiratory Rate 18 20 Blood Pressure 117/54 L Pulse Oximetry 92 92 Fraction of Inspired Oxygen 0.44 Oxygen Delivery Method Heated High Flow Oxygen Flow Rate 35 Narrative Exam Narrative: tired renata laying in bed Const General: cooperative and ill appearing HENMT Head: normal to inspection and normocephalic Resp Other: clear to auscultation bilaterally with HHFNC Cardio Other: regular rate and rhythm S1 S2 no tachycardia GI Other: soft nontender nondistended Neuro General: patient alert, patient awake, patient oriented x3 and CN's II-XI intact bilaterally Extrem General: normal to inspection and full ROM Psych Appearance: grossly normal Objective Labs Result Diagrams: 10/07/21 04:20 10/07/21 04:20 Labs: Laboratory Results - last 24 hr 10/07/21 10/07/21 04:20 04:20 WBC 10.0 RBC 4.60 Hgb 14.0 Hct 40.6 L MCV 88.2 MCH 30.5 MCHC 34.5 RDW 13.0 Plt Count 542 H Sodium 135 L Potassium 4.7 Chloride 103 Carbon Dioxide 28 BUN 33 H Creatinine 0.85 Estimated GFR > 60.0 BUN/Creatinine Ratio 38.8 H Glucose 130 H Calcium 9.0 PFSH Medical History Exposure to COVID-19 virus Social History household members: spouse Smoking Status: Never smoker Assessment & Plan Assessment & Plan narrative: #COVID-19 pneumonia #acute respiratory failure with hypoxia Improving on heated high flow. continue to encourage proning and mobilization. May be suitable for floor soon getting bacitrinib and dexamethasone and lovenox encourage incentive spirometry use appreciate tele online services manager input He is DNI for hypoxia #suspected bacterial superinfection on iv abx c/o tele intensivists #Hypertension with blood pressure well controlled.? His blood pressure may be improved because of illness or because he did quit drinking alcohol. continue losartan at half his outpatient dose 50 mg daily.? Will continue to hold outpatient hydrochlorothiazide.? kidney function holding on continue lasix per teleICU encourage enteral hydration. #Impaired glucose tolerance Continue with CBGS q.a.c. and q.h.s.?? Continue with sliding scale insulin #Hyperlipidemia Continue home atorvastatin.? #History of alcohol abuse syndrome.? Stable well out of the range of time for any withdrawal symptoms. #Acute kidney disease.? improved s/p IVF, continue to monitor blood pressure and kidney function DVT PPX: lovenox MDM: Time Spent With Patient Critical Care time: I spent a total of [] minutes of critical care time on this patient's care today; this time is exclusive of procedural time. Quality VTE Deep Vein Thrombosis/Pulmonary Embolism Present on Admission: No
--- NOTE | 2021-10-07 10:56 | DIET.PN1 ---
Dietary Progress Note Assessment: 61y M admitted for acute hypoxic respiratory failure from covid PNA on LOS day 8. Pt initially in AC but changed to ICU status where he remains. Pt had excellent POs first part of stay, poor POs for two days during beginning of ICU stay, but POs excellent again now for past 3d averaging 75-100%. Medical team plans to switch pt to NC oxygen soon. Ht: 175.26 cm Wt: 112.491 kg BMI: 36.6 Last BM: 10/07/21 (10/07/21 10:39) MNA: 10 Cesar Score: 23 Diet: 09/30/21 Breakfast Heart Healthy Diet Diet Modifications: Sodium Level: 2 gm Sodium Nutrition Percent Meal Consumed 100% 10/07/21 09:21 Percent Meal Consumed 75% 10/06/21 18:44 Percent Meal Consumed 100% 10/06/21 12:00 Percent Meal Consumed 75% 10/06/21 10:00 Percent Meal Consumed 75% 10/05/21 18:00 Percent Meal Consumed 50% 10/05/21 13:18 Labs: RBC 4.60 X10^6/uL (4.5-5.9) 10/07/21 04:20 Hgb 14.0 g/dL (13.5-17.5) 10/07/21 04:20 Hct 40.6 % (41-53) L 10/07/21 04:20 Creatinine 0.85 mg/dL (0.66-1.25) 10/07/21 04:20 Lactate 1.1 mmol/L (0.7-2.1) 09/29/21 09:45 Ferritin 1850 ng/mL (18-464) H 09/30/21 06:00 NT-Pro-B Natriuret Pep 84 pg/mL (<125) 09/29/21 09:45 Nutrition Diagnosis: none at this time. Interventions: 1. Continue encouraging PO food and fluid intake to support nutrient repletion. 2. Reinforce continued abstinence of etoh for heart health. Electronically Signed by: Claudia Bagley 10/07/21 10:56 Clinical Dietitian [address] [address]
--- NOTE | 2021-10-07 11:57 | PM.PN.EICU ---
Subjective Subjective :: This patient was seen via real time interactive two-way audiovisual telecommunication. Current Medications Current Medications Medications: Home Medications atorvastatin 40 mg tablet 40 mg PO QA 09/29/21 [History Confirmed 09/29/21] hydrochlorothiazide 12.5 mg capsule 12.5 mg PO QA 09/29/21 [History Confirmed 09/29/21] losartan 100 mg tablet 100 mg PO QA 09/29/21 [History Confirmed 09/29/21] metformin 500 mg tablet 500 mg PO QA 09/29/21 [History Confirmed 09/29/21] Visit Medications (administered) Generic Name Dose Route Start Last Admin Trade Name Freq PRN Reason Stop Dose Admin Atorvastatin Calcium 40 mg 10/04/21 21:00 10/06/21 21:46 Atorvastatin 20 Mg Tablet PO 40 mg BEDTIME ZACKARY Administration Azithromycin 500 mg 10/06/21 09:00 10/07/21 08:44 Azithromycin 250 Mg Tablet PO 500 mg DAILY ZACKARY Administration Dexamethasone 6 mg 09/30/21 09:00 10/07/21 08:45 Dexamethasone 10 Mg/Ml Vial IV 6 mg DAILY ZACKARY Administration Enoxaparin Sodium 40 mg 09/30/21 09:00 10/07/21 08:44 Enoxaparin 40 Mg/0.4 Ml Syringe SUBCUT 40 mg DAILY ZACKARY Administration Furosemide 20 mg 10/02/21 09:00 10/07/21 08:46 Furosemide 20 Mg/2 Ml Vial IV 20 mg DAILY ZACKARY Administration Ceftriaxone Sodium 1,000 mg/ 100 mls @ 200 mls/hr 10/03/21 10:15 10/07/21 08:44 Sodium Chloride IV 200 mls/hr Q24H ZACKARY Administration Lorazepam 0.5 mg 09/29/21 17:51 10/06/21 21:48 Lorazepam 2 Mg/Ml Inj IV 0.5 mg Q6HR PRN Administration Anxiety Losartan Potassium 50 mg 10/01/21 09:00 10/07/21 08:44 Losartan 50 Mg Tablet PO 50 mg DAILY ZACKARY Administration Pantoprazole Sodium 40 mg 10/02/21 06:00 10/07/21 05:[address] 40 Mg Tablet PO 40 mg 0600 ZACKARY Administration Sodium Chloride 10 ml 09/30/21 09:00 10/07/21 08:45 Sodium Chloride 0.9% Flush IV 10 ml BID ZACKARY Administration Objective Ventilator Parameters: Ventilator Settings FiO2 0.80 Labs Result Diagrams: 10/07/21 04:20 10/07/21 04:20 Labs: Laboratory Results - last 24 hr 10/07/21 10/07/21 04:20 04:20 WBC 10.0 RBC 4.60 Hgb 14.0 Hct 40.6 L MCV 88.2 MCH 30.5 MCHC 34.5 RDW 13.0 Plt Count 542 H Sodium 135 L Potassium 4.7 Chloride 103 Carbon Dioxide 28 BUN 33 H Creatinine 0.85 Estimated GFR > 60.0 BUN/Creatinine Ratio 38.8 H Glucose 130 H Calcium 9.0 Exam Vital Signs (past 8 hours): - 10/07/21 04:00 10/07/21 05:20 10/07/21 08:00 Temperature 97.2 F L 97.6 F Pulse Rate 45 L 43 L 53 L Respiratory Rate 17 18 16 Blood Pressure 117/54 L 117/54 L 120/61 Pulse Oximetry 95 92 44 L 10/07/21 08:24 Temperature Pulse Rate 49 L Respiratory Rate 20 Blood Pressure Pulse Oximetry 92 Fraction of Inspired Oxygen 0.44 Oxygen Delivery Method Heated High Flow Oxygen Flow Rate 35 Quality TeleICU VTE Deep Vein Thrombosis/Pulmonary Embolism Present on Admission: No Assessment & Plan Assessment & Plan narrative: RESP: # Acute hypoxemia respiratory failure -- Secondary to COVID PNA -- Improved? -- On HFNC 35/45% w/ SpO2 ~93% -- COVID rx as below -- Cont gentle diuresis to seek net negative fluid balance -- Encourage self proning -- Goal SpO2 > 88% CVS: # Hx of HTN -- On losartan -- Goal SBP < 140 ID: # COVID PNA -- Cont decadron and baricitinib -- Cont gentle diuresis to seek net negative fluid balance -- Avoid NSAIDs -- On strict contact, droplet/airborne protection, and critical meticulous and hygiene ENDO: -- Goal BS < 180 D/w RN and RT. Time Spent With Patient Critical Care time: I spent a total of [30] minutes of critical care time on this patient's care today; this time is exclusive of procedural time. Time Spent With Patient Critical Care time: I spent a total of [] minutes of critical care time on this patient's care today; this time is exclusive of procedural time.
--- NOTE | 2021-10-07 17:29 | PM.PN.1 ---
Subjective Subjective Date Patient Seen: 10/07/21 Time Patient Seen: 17:29 Interval history: much better now at 8L via NC. Transferring to regular floor bed. continue mobilizing as tolerated. Exam Vital Signs (past 8 hours): - 10/07/21 12:00 10/07/21 12:09 10/07/21 15:09 Temperature 98 F Pulse Rate 73 79 93 H Respiratory Rate 16 16 20 Blood Pressure 90/50 L 120/90 Pulse Oximetry 44 L 10/07/21 16:00 10/07/21 17:05 Temperature 97.8 F Pulse Rate 53 L Respiratory Rate 18 Blood Pressure 99/58 L Pulse Oximetry 44 L 92 Fraction of Inspired Oxygen 0.44 Oxygen Delivery Method High Flow Nasal Cannula Oxygen Flow Rate 8 Objective Labs Result Diagrams: 10/07/21 04:20 10/07/21 04:20 Labs: Laboratory Results - last 24 hr 10/07/21 10/07/21 04:20 04:20 WBC 10.0 RBC 4.60 Hgb 14.0 Hct 40.6 L MCV 88.2 MCH 30.5 MCHC 34.5 RDW 13.0 Plt Count 542 H Sodium 135 L Potassium 4.7 Chloride 103 Carbon Dioxide 28 BUN 33 H Creatinine 0.85 Estimated GFR > 60.0 BUN/Creatinine Ratio 38.8 H Glucose 130 H Calcium 9.0 PFSH Medical History Exposure to COVID-19 virus Social History household members: spouse Smoking Status: Never smoker Assessment & Plan Time Spent With Patient Critical Care time: I spent a total of [] minutes of critical care time on this patient's care today; this time is exclusive of procedural time. Quality VTE Deep Vein Thrombosis/Pulmonary Embolism Present on Admission: No
[2021-10-07] MEDS: ATORVASTATIN 20 MG TABLET 40 MG PO (22:10)
[2021-10-07] MEDS: LORazepam 2 MG/ML INJ 0.5 MG IV (22:11)
[2021-10-08] VITALS (52 sets, daily range): BP systolic 99–123; BP diastolic 50–88; PULSE 45–96; RESP 17–18; TEMP 36.1–37.1; O2SAT 81–98
[2021-10-08] MEDS: PANTOPRAZOLE DR 40 MG TABLET PO (05:54)
--- NOTE | 2021-10-08 08:27 | P.PN_ITS ---
Subjective Subjective Date Patient Seen: 10/08/21 Time Patient Seen: 08:27 Interval history: Patient is seen in follow-up COVID-19 pneumonia. Patient overall feeling better today. Is off of high-flow oxygen. Did have a slight setback and had increase in O2 to 11 L. Frustrated would like to go home. Has no new complaints Exam Vital Signs (past 8 hours): - 10/08/21 06:06 Temperature 97.0 F L Pulse Rate 62 Respiratory Rate 18 Blood Pressure 110/58 L Pulse Oximetry 96 Fraction of Inspired Oxygen 0.44 Oxygen Delivery Method High Flow Nasal Cannula Oxygen Flow Rate 8 Narrative Exam Narrative: Alert male sitting comfortably in bed no acute respiratory distress. Neck supple without adenopathy JVD or bruits. Lungs are clear. Heart regular rate and rhythm. Extremities without edema. Objective Labs Result Diagrams: 10/07/21 04:20 10/07/21 04:20 [facility] Medical History Exposure to COVID-19 virus Social History household members: spouse Smoking Status: Never smoker Assessment & Plan Assessment & Plan narrative: COVID-19 pneumonia. Seems to be slowly improving. O2 requirement down to 11 L. Had been slightly improved. Seems to be making slow headway. Certainly not setback. Probably candidate for floor care. Full Cl 24 hours goes. Otherwise continue bactrinib and dexamethasone. Lovenox. Encourage self running. Pre she ate tele nurse reviewer input. No significant change from here. Suspected bacterial superinfection. Patient seems to be overall stable. Suspect we can discontinue antibiotics before discharge. Possibly in the next few days. Will watch and follow closely. Hypertension well controlled. Will follow. No change in medication at this time. History of impaired glucose tolerance. Will continue to follow. Sliding scale as needed. Hyperlipidemia. Stable. Continue usual meds. History of alcohol abuse syndrome. Stable. No evidence withdrawal. History of acute kidney injury. Has been normal for some time. No other changes. Will follow. But suspect no major issue. DVT prophylaxis on Lovenox. High dose. Disposition. Hopefully over the next 2-3 days patient will be go home on home oxygen certainly not a candidate now. Patient understands questions answered 30 minutes spent in care with perforation to see patient seeing patient orders and dictation Time Spent With Patient Critical Care time: I spent a total of [] minutes of critical care time on this patient's care today; this time is exclusive of procedural time. Quality VTE Deep Vein Thrombosis/Pulmonary Embolism Present on Admission: No
[2021-10-08] MEDS: DEXAMETHASONE 10 MG/ML VIAL 6 MG IV (09:55)
[2021-10-08] MEDS: BARICITINIB 2 MG TABLET 4 MG PO (09:55)
[2021-10-08] MEDS: FUROSEMIDE 20 MG/2 ML VIAL IV (09:56)
[2021-10-08] MEDS: cefTRIAXone 1,000 MG in SODIUM CHLORIDE 0.9% 100 ML 200 ML IV (09:56)
[2021-10-08] MEDS: ENOXAPARIN 40 MG/0.4 ML SYRINGE SUBCUT (09:56)
[2021-10-08] MEDS: SODIUM CHLORIDE 0.9% FLUSH 10 ML IV ×2 (09:57→22:33)
[2021-10-08] MEDS: LOSARTAN 50 MG TABLET PO (10:00)
[2021-10-08] MEDS: AZITHROMYCIN 250 MG TABLET 500 MG PO (11:53)
--- NOTE | 2021-10-08 13:27 | CM.DPC ---
DCP Cont: Per MD, pt has started to make medical progress and was downgraded to floor care and was able to be transitioned to NC 10L off HHF. Per Scale Mechanic, pt has improved appetite and able to consume at least 75% of meals. Plan: SW to follow closely to determine if PT eval needed or if pt able to ambulate with nursing/RT staff and confirming safe plan of d/c to home with spouse and discussion with pt and spouse via phone closer to d/c due to triage needs. CHRISTIE Schroeder
--- NOTE | 2021-10-08 16:58 | PC.NURSE ---
1700: Pt has remained stable throughout shift with no complaints or s/s of respiratory distress. Remains on 10L/NC, has not desaturated with exertion. Currently sitting in chair at bedside with call light in reach.
[2021-10-08] MEDS: LORazepam 0.5 MG TABLET PO (21:40)
[2021-10-08] MEDS: ATORVASTATIN 20 MG TABLET 40 MG PO (21:41)
[2021-10-09 00:39] VITALS: BP 122/58; PULSE 43; RESP 17; TEMP 36.3; O2SAT 97
[2021-10-09 04:00] VITALS: BP 117/60; PULSE 57; RESP 18; TEMP 36.8; O2SAT 92
[2021-10-09] MEDS: PANTOPRAZOLE DR 40 MG TABLET PO (05:31)
--- NOTE | 2021-10-09 06:14 | PC.NURSE ---
Shift note: Pt has tolerated weaning from O2 well. began shift at 8L high j[place] a now down to 2l Sats maintained at 90 or above.
[2021-10-09 08:19] VITALS: O2SAT 92
--- NOTE | 2021-10-09 09:51 | P.DS_ITS ---
History of Present Illness History of Present Illness Date Patient Seen: 10/09/21 Time Patient Seen: 09:51 Chief complaint: COVID + Narrative: Feeling much better this morning working with RT he is on 2L at rest, 4L with activity, ready to go home with home oxygen. Discharge Providers Provider Date of admission: 09/29/21 11:28 Discharge Date: 10/09/21 Primary care physician: Doctor Cecilia MD Consults: 09/29/21 13:49 Consult to Dietitian, Adult Routine Comment: Reason For Exam: education on hearth healthy diet 10/02/21 00:30 Consult to Tele-campus security director Routine Comment: Consulting Provider: [facility] [employer] Reason for consultation: Floorhand services Discharge provider: Ruiz Dolan MD Summary Hospital Course Discharge Diagnosis: covid pneumonia Hospital Course: Unvaccinated pt presented initially only mildly hypoxic but declined within two days of admission and spent a week in the ICU on heated high flow, high FiO2 up to 60L/100% however in last day has been able to transition successfully to nasal cannula and this morning to very low supplemental O2 even with ambulation. Will go home with supplemental O2 and parameters to keep SpO2 above 90%. Status at Discharge Cognitive/behavioral status at discharge: at baseline, oriented Functional status at discharge: independent ambulation Overall status at discharge: patient is progressing back to baseline Exam Vital Signs (past 8 hours): - 10/09/21 04:00 Temperature 98.2 F Pulse Rate 57 L Respiratory Rate 18 Blood Pressure 117/60 Pulse Oximetry 92 Fraction of Inspired Oxygen 0.44 Oxygen Delivery Method High Flow Nasal Cannula Oxygen Flow Rate 4 Narrative Exam Narrative: sitting in chair with sparkle back in eyes Const General: cooperative and comfortable HENMT Head: normal to inspection and normocephalic Eyes General: appearance normal, both eyes and all related structures Resp Other: clear to auscultation bilaterally Cardio Other: regular rate and rhythm S1/S2 GI Other: soft nontender nondistended normal bowel sounds Extrem General: normal to inspection and full ROM Psych Appearance: grossly normal Mental Status: mental status grossly normal Objective Labs Result Diagrams: 10/07/21 04:20 10/07/21 04:20 [facility] Medical History Exposure to COVID-19 virus Social History household members: spouse Smoking Status: Never smoker Discharge Assessment & Plan Assessment and Plan Assessment: Assessment/Plan: #COVID-19 pneumonia #acute respiratory failure with hypoxia Much better down to 2L via NC ok to go home on that #suspected bacterial superinfection s/p abx, ok to stop #Hypertension with blood pressure well controlled.? resume home losartan. #Impaired glucose tolerance resume home metformin on dc #Hyperlipidemia Continue home atorvastatin.? #History of alcohol abuse syndrome.? Stable well out of the range of time for any withdrawal symptoms. #Acute kidney disease.? improved s/p IVF, continue to monitor blood pressure and kidney function DVT PPX: lovenox MDM: Discharge Plan Discharge Plan Patient Disposition: Home Discharge orders & Medications Prescriptions: Continued atorvastatin 40 mg tablet 40 mg PO QAM 0RF metformin 500 mg tablet 500 mg PO QAM 0RF Label Comments: TAKE ONE TABLET BY MOUTH EVERY MORNING hydrochlorothiazide 12.5 mg capsule 12.5 mg PO QAM 0RF Label Comments: TAKE 2 CAPSULE BY MOUTH ONCE A DAY losartan 100 mg tablet 100 mg PO QAM 0RF Label Comments: TAKE ONE TABLET BY MOUTH ONE TIME DAILY Follow up/Referrals: Doctor Brooks MD [Primary Care Provider] - Ruiz Dolan MD [Physician] - Diet/Activity/Treatments Diet: Diet as Tolerated Discharge Data Primary Care Provider: Doctor Cecilia Quality VTE Deep Vein Thrombosis/Pulmonary Embolism Present on Admission: No
[2021-10-09 09:58] VITALS: BP 108/68; PULSE 71; RESP 18; TEMP 36.8; O2SAT 93
--- NOTE | 2021-10-09 11:36 | PC.NURSE ---
pt preparing to discharge to home on 2L o2 via nc, home o2 set up for home use and picc line discontinued - reviewed poc post hospitalization care plan and answered all questions to his satisfaction
== END 2021-10-09 11:53 | disposition home or self-care (01) | DRG 177 ==
LOC: ED 11:10 → AC 11:29 → ICU 10-01 23:49
PROVIDERS: Internal Medicine Pulmonary Disease; Admitting Provider Family Medicine; Emergency Provider Emergency Medicine; Referring Provider Emergency Medicine; Visit Provider Family Medicine
DX: U07.1 COVID-19 (principal); J12.82 Pneumonia due to coronavirus disease 2019; J96.01 Acute respiratory failure with hypoxia; J15.9 Unspecified bacterial pneumonia; N17.9 Acute kidney failure, unspecified; I10 Essential (primary) hypertension; E78.5 Hyperlipidemia, unspecified; R73.02 Impaired glucose tolerance (oral); Z23 Encounter for immunization
CPT/HCPCS: 36415; 36592; 36600; 71045; 80048; 80053; 80076; 82550; 82553; 82728; 82805; 82962; 83605; 83615; 83880; 84145; 84484; 85025; 85027; 85379; 86140; 87040; 87635; 90471; 90656; 93005; 93010; 93970; 94618; 94760; 94762; 96365; 96372; 96375; 99285; C9803; C9113; J0696; J1100; J1650; J1940; J2060; Q2038